=== PATIENT | male | born 1930 | race Caucasian/White ===

== ENCOUNTER 2016-12-21 12:26 | Observation (INO) | payer MEDICARE, BC ==
[~2016-12-21] VITALS: Ht 185.4 cm; Wt 99.9 kg
[~2016-12-21 12:26] MED LIST: ALBUTEROL0.5 % IN; ARICEPT PO; ASPIRINCHW 81MG PO; BABY ASPIRIN81 MG PO; CORICIDI2 PO; COUMADIN3 MG PO; COUMADIN6 MG PO; DONEPEZIL HCL10 MG PO; DONEPEZIL5 MG PO; FLUARIX QUADRIV1 INJ IM; FLUZONE SPLT1 M1 IM; GLYCOLAX3350 N1 OR; KEFLEX500 MG PO; KLOR-CON M2020 MEQ PO; LASIX 40 MG40 MG/TAB PO; LASIX40 MG OR; MELOXICAM7.5 MG/5 M OR; MUPIROCIN2 % EX; NAMENDA XR28 MG PO; NAMENDA10 MG PO; NEURONTIN400 MG PO; OSTEO BI-FL1 PO; OSTEO BI-FLX OR; PAROXETINE10 MG PO; PAROXETINE20 MG PO; SIMVASTATIN40 MG PO; TERAZOSIN10 MG OR; TERAZOSIN5 MG PO; TRAMADOL HCL50 MG PO; TRAMADOL PO; ULTRAM50 MG PO; VITAMIN B-121000 MC1 SL; WARFARIN3 MG PO; ZITHROMAX250 MG PO; ZOSTAVAX IM
[2016-12-21 12:42] LABS: HEMATOCRIT 44.6 % (39.0-50.0); HEMOGLOBIN 14.5 g/dl (14.0-18.0); IMMATURE GRANULOCYTES 0.2 % (0.0-1.0); MEAN CORPUSCULAR HGB 31.5 pG CALC (26.0-32.0); MEAN CORPUSCULAR HGB CONC 32.5 g/L CALC (32.0-36.0); NEUT# 3.28 thou/uL (1.82-7.42); RED BLOOD COUNT 4.6 mill/uL (4.70-6.10); RED CELL DISTRI WIDTH 14.4 % (11.5-15.5)
[2016-12-21 12:59] LABS: INTERNATIONAL NORMALIZED RATIO 3.3 RATIO (0.7-1.3); PROTHROMBIN TIME 39.4 SECONDS (9.0-12.5)
[2016-12-21 13:00] LABS: ALBUMIN 3.8 g/dL (3.2-5.0); ALKALINE PHOSPHATASE 60 u/l (38-126); AMYLASE 80 u/l (30-110); ANION GAP 12 (6-22 (CALC)); BILIRUBIN, TOTAL 2.3 mg/dL (0.0-1.4); BUN 17 mg/dL (8-23); BUN/CREATININE RATIO 16 (12-20 (CALC)); CALCIUM 9.3 mg/dL (8.4-10.2); CARBON DIOXIDE 29 mmol/l (22-30); CHLORIDE 106 mmol/l (95-108); CREATININE 1.1 mg/dL (0.7-1.3); GFR > 60 ML/MIN (>=60 (CALC)); GFR FOR AFR.AMER. > 60 ML/MIN (>=60 (CALC)); GLUCOSE 80 mg/dL (82-115); LIPASE 115 u/l (23-300); POTASSIUM 4.4 mmol/l (3.5-5.1); SGOT/AST 22 u/l (19-48); SGPT/ALT 27 u/l (11-66); SODIUM 143 mmol/l (137-146); TOTAL PROTEIN 6.7 g/dL (6.3-8.2)
[2016-12-21 13:13] LABS: MYOGLOBIN 49 ng/mL (0 - 121)
[2016-12-21] MEDS ORDERED: WARFARIN1 MG PO (14:37)
[2016-12-21] MEDS ORDERED: PAROXETINE10 MG PO (14:39)
[2016-12-21 16:16] VITALS: BP 142/84
[2016-12-21 19:10] VITALS: BP 132/73
[2016-12-22 00:02] VITALS: BP 100/60
[2016-12-22 04:10] VITALS: BP 98/62
[2016-12-22 06:21] LABS: INTERNATIONAL NORMALIZED RATIO 2.6 RATIO (0.7-1.3); PROTHROMBIN TIME 30.7 SECONDS (9.0-12.5)
[2016-12-22 06:27] LABS: ANION GAP 12 (6-22 (CALC)); BUN 18 mg/dL (8-23); BUN/CREATININE RATIO 17 (12-20 (CALC)); CALCIUM 9.2 mg/dL (8.4-10.2); CALCULATED LDLCHOLESTEROL 68 mg/dL (62-129 (CALC)); CARBON DIOXIDE 26 mmol/l (22-30); CHLORIDE 109 mmol/l (95-108); CHOLESTEROL HDL RATIO 3.3 (<4.4 (CALC)); GFR > 60 ML/MIN (>=60 (CALC)); GFR FOR AFR.AMER. > 60 ML/MIN (>=60 (CALC)); GLUCOSE 75 mg/dL (82-115); HDL CHOLESTEROL 39 mg/dL (>=40); POTASSIUM 4.3 mmol/l (3.5-5.1); SODIUM 142 mmol/l (137-146); TOTAL CHOLESTEROL 127 mg/dl (0-199); TOTAL TRIGLYCERIDES 98 mg/dl (30-149); VLDL CHOLESTROL 20 mg/dl (0-38 (CALC))
[2016-12-22 06:38] LABS: HEMATOCRIT 41.3 % (39.0-50.0); HEMOGLOBIN 14.3 g/dl (14.0-18.0); MEAN CELL VOLUME 96.5 fL CALC (80.0-100.0); MEAN CORPUSCULAR HGB 33.4 pG CALC (26.0-32.0); MEAN CORPUSCULAR HGB CONC 34.6 g/L CALC (32.0-36.0); PLATELET COUNT 91 thou/uL (130-400); RED BLOOD COUNT 4.28 mill/uL (4.70-6.10); RED CELL DISTRI WIDTH 14.2 % (11.5-15.5)
[2016-12-22 06:39] LABS: LYMPH% 22 % (15-41); MONO% 14 % (2-13); NEUT% 64 % (42-76)
[2016-12-22 09:22] VITALS: BP 87/53
[2016-12-22] MEDS ORDERED: WARFARIN6 MG PO (13:47)
[2016-12-22] MEDS ORDERED: NEURONTIN400 MG PO (13:50)
[2016-12-22] MEDS ORDERED: PROSCAR5 MG PO (13:51)
[2016-12-22] MEDS ORDERED: TERAZOSIN5 MG PO (13:51)
[2016-12-22] MEDS ORDERED: ALDACTONE25 MG PO (13:51)
[2016-12-22] MEDS ORDERED: OSTEO BI-FLEX R1 TAB PO (13:52)
[2016-12-22] MEDS ORDERED: TYLENOL 500MG TAB PO (13:52)
[2016-12-22 14:27] VITALS: BP 95/56
[2016-12-22 14:29] VITALS: BP 95/56
== END 2016-12-22 17:21 ==
LOC: ENPENDDIS → ED 12:26 → ED-I 13:58 → ED 14:19 → MS2 14:20
PROVIDERS: Emergency Medicine; ADMIT Internal Medicine; ATTEND Internal Medicine
DX: R07.89 Other chest pain (principal); I11.0 Hypertensive heart disease with heart failure; I50.22 Chronic systolic (congestive) heart failure; I42.0 Dilated cardiomyopathy; J44.9 Chronic obstructive pulmonary disease, unspecified; F03.90 Unspecified dementia, unspecified severity, without behavioral disturbance, psychotic disturbance, mood disturbance, and anxiety; I48.2 Chronic atrial fibrillation; E78.5 Hyperlipidemia, unspecified; R79.1 Abnormal coagulation profile; I95.9 Hypotension, unspecified; M19.90 Unspecified osteoarthritis, unspecified site; T45.515A Adverse effect of anticoagulants, initial encounter; Z87.891 Personal history of nicotine dependence

== ENCOUNTER 2017-01-09 16:26 | Emergency (ER) | payer MEDICARE, BC ==
[~2017-01-09] VITALS: Ht 185.4 cm; Wt 100.0 kg
[~2017-01-09 16:26] MED LIST changes: +ALDACTONE25 MG PO; +OSTEO BI-FLEX R1 TAB PO; +PROSCAR5 MG PO; +TYLENOL 500MG TAB PO; +WARFARIN1 MG PO; +WARFARIN6 MG PO
[2017-01-09 16:48] LABS: HEMATOCRIT 42.9 % (39.0-50.0); HEMOGLOBIN 13.8 g/dl (14.0-18.0); IMMATURE GRANULOCYTES 0.1 % (0.0-1.0); MEAN CELL VOLUME 97.5 fL CALC (80.0-100.0); MEAN CORPUSCULAR HGB 31.4 pG CALC (26.0-32.0); MEAN CORPUSCULAR HGB CONC 32.2 g/L CALC (32.0-36.0); NEUT# 7.17 thou/uL (1.82-7.42); RED BLOOD COUNT 4.4 mill/uL (4.70-6.10)
[2017-01-09] MEDS ORDERED: MYRBETRIQ25 MG (16:48)
[2017-01-09 17:00] LABS: URINE BLOOD DIPSTICK LARGE (NEGATIVE); URINE CLARITY CLEAR; URINE COLOR YELLOW; URINE GLUCOSE - DIPSTICK NEGATIVE (NEGATIVE); URINE KETONE TRACE mg/dL (NEGATIVE); URINE LEUK ESTERASE TRACE (NEGATIVE); URINE NITRITE - DIPSTICK NEGATIVE (Negative); URINE PH 5.5 (4.5-8.0); URINE PROTEIN - DIPSTICK 30 mg/dL (NEG-TRACE); URINE SPECIFIC GRAVITY 1.025
[2017-01-09 17:02] LABS: ALBUMIN 3.6 g/dL (3.2-5.0); ALKALINE PHOSPHATASE 53 u/l (38-126); ANION GAP 15 (6-22 (CALC)); BILIRUBIN, TOTAL 2.4 mg/dL (0.0-1.4); BUN 29 mg/dL (8-23); BUN/CREATININE RATIO 27 (12-20 (CALC)); CALCIUM 9.8 mg/dL (8.4-10.2); CARBON DIOXIDE 26 mmol/l (22-30); CHLORIDE 109 mmol/l (95-108); GFR > 60 ML/MIN (>=60 (CALC)); GFR FOR AFR.AMER. > 60 ML/MIN (>=60 (CALC)); GLUCOSE 87 mg/dL (82-115); POTASSIUM 4.3 mmol/l (3.5-5.1); SGOT/AST 17 u/l (19-48); SGPT/ALT 26 u/l (11-66); SODIUM 145 mmol/l (137-146); TOTAL PROTEIN 6.3 g/dL (6.3-8.2)
[2017-01-09 17:03] LABS: URINE BILIRUBIN - DIPSTICK TRACE (NEGATIVE)
[2017-01-09 17:14] LABS: URINE BACTERIA FEW hpf; URINE MUCUS MODERATE hpf (NONE-FEW); URINE RBC 50-100 RBC/hpf (0-5); URINE SQUAMOUS EPITHELIAL CELL RARE EPI/hpf (0-FEW)
[2017-01-09 17:14] LABS: MYOGLOBIN 46 ng/mL (0 - 121)
[2017-01-09] MEDS ORDERED: MACROBID100 MG PO (17:50)
[2017-01-09 18:33] VITALS: BP 130/59
== END 2017-01-09 19:05 | disposition home or self-care (01) ==
LOC: ED 16:26
PROVIDERS: Emergency Medicine
DX: N39.0 Urinary tract infection, site not specified (principal); I10 Essential (primary) hypertension; E78.00 Pure hypercholesterolemia, unspecified; J44.9 Chronic obstructive pulmonary disease, unspecified

== ENCOUNTER 2017-02-24 13:53 | Emergency (ER) | payer MEDICARE, BC ==
[~2017-02-24] VITALS: Ht 185.4 cm; Wt 79.5 kg
[~2017-02-24 13:53] MED LIST changes: +MACROBID100 MG PO; +MYRBETRIQ25 MG
[2017-02-24] MEDS ORDERED: MOTRIN400 MG PO (14:54)
[2017-02-24 15:19] VITALS: BP 146/70
== END 2017-02-24 15:44 ==
LOC: ED 13:53
PROC: 2W39X1Z Immobilization of Left Upper Extremity using Splint (ICD-10-PCS; principal; 2017-02-24)
DX: S52.002A Unspecified fracture of upper end of left ulna, initial encounter for closed fracture (principal); S51.011A Laceration without foreign body of right elbow, initial encounter; W01.0XXA Fall on same level from slipping, tripping and stumbling without subsequent striking against object, initial encounter; Y93.89 Activity, other specified; Y92.232 Corridor of hospital as the place of occurrence of the external cause

== ENCOUNTER 2017-12-03 04:47 | Inpatient (IN) | payer MEDICARE, BC ==
[2017-12-03] VITALS (10 sets, daily range): BP systolic 80–131; BP diastolic 50–80
[~2017-12-03] VITALS: Ht 182.9 cm; Wt 96.0 kg
[~2017-12-03 04:47] MED LIST changes: +MOTRIN400 MG PO
--- NOTE | 2017-12-03 04:50 | NUR ---
RECEIVED BY EMS, C/O R HIP PAIN AFTER FALL. OUTWARD ROTATION NOTED TO R FOOT. STRONG PEDAL PULSE PALPATED.
[2017-12-03] MEDS ORDERED: COLACE100 MG PO (04:59)
[2017-12-03] MEDS ORDERED: SPIRONOLACT25 MG PO (05:00)
[2017-12-03] MEDS ORDERED: NAMENDA10 MG PO (05:01)
[2017-12-03] MEDS ORDERED: JANTOVEN4 MG PO (05:02)
[2017-12-03] MEDS ORDERED: WARFARIN3 MG PO (05:02)
[2017-12-03] MEDS ORDERED: CLARITIN10 M1 PO (05:06)
[2017-12-03 06:14] LABS: HEMATOCRIT 45.5 % (39.0-50.0); HEMOGLOBIN 14.7 g/dl (14.0-18.0); IMMATURE GRANULOCYTES 0.7 % (0.0-1.0); MEAN CELL VOLUME 96.4 fL CALC (80.0-100.0); MEAN CORPUSCULAR HGB 31.1 pG CALC (26.0-32.0); MEAN CORPUSCULAR HGB CONC 32.3 g/L CALC (32.0-36.0); NEUT# 6.17 thou/uL (1.82-7.42); RED BLOOD COUNT 4.72 mill/uL (4.70-6.10); RED CELL DISTRI WIDTH 13.6 % (11.5-15.5)
[2017-12-03 06:20] LABS: ALBUMIN 3.7 g/dL (3.2-5.0); ALKALINE PHOSPHATASE 76 u/l (38-126); ANION GAP 16 (6-22 (CALC)); BILIRUBIN, TOTAL 1.4 mg/dL (0.0-1.4); BUN 20 mg/dL (8-23); BUN/CREATININE RATIO 22 (12-20 (CALC)); CARBON DIOXIDE 26 mmol/l (22-30); CHLORIDE 105 mmol/l (95-108); GFR > 60 ML/MIN (>=60 (CALC)); GFR FOR AFR.AMER. > 60 ML/MIN (>=60 (CALC)); POTASSIUM 4.1 mmol/l (3.5-5.1); SGOT/AST 27 u/l (19-48); SGPT/ALT 30 u/l (11-66); SODIUM 143 mmol/l (137-146); TOTAL PROTEIN 6.7 g/dL (6.3-8.2)
[2017-12-03 06:37] LABS: ACT PARTIAL THROMBO TIME 29.9 SECONDS (20.0-32.5); INTERNATIONAL NORMALIZED RATIO 1.4 RATIO (0.7-1.3); PROTHROMBIN TIME 15.4 SECONDS (9.0-12.5)
--- NOTE | 2017-12-03 06:42 | NUR ---
BEDSIDE REPORT GIVEN TO KWADWO SWAIN.
--- NOTE | 2017-12-03 07:00 | NUR ---
PT RESTING ON STRETCHER, ALERT, STATES HAVING 0/10 PAIN AND NO DISCOMFORT.
[2017-12-03 07:10] LABS: URINE BILIRUBIN - DIPSTICK NEGATIVE (NEGATIVE); URINE BLOOD DIPSTICK TRACE-LYSED (NEGATIVE); URINE COLOR YELLOW; URINE GLUCOSE - DIPSTICK NEGATIVE (NEGATIVE); URINE KETONE NEGATIVE (NEGATIVE); URINE LEUK ESTERASE NEGATIVE (NEGATIVE); URINE NITRITE - DIPSTICK NEGATIVE (Negative); URINE PH 6.5 (4.5-8.0); URINE PROTEIN - DIPSTICK TRACE mg/dL (NEG-TRACE)
[2017-12-03 07:14] LABS: URINE CLARITY CLEAR
--- NOTE | 2017-12-03 07:18 | NUR ---
CALLED [facility] FOR REPORT- ACCEPTING RN IN WITH PT WILL RETURN CALL.
--- NOTE | 2017-12-03 07:32 | NUR ---
FAMILY STATES THE LAST TIME PT ATE WAS AROUND 1700 ON 12/02/17.
--- NOTE | 2017-12-03 07:40 | NUR ---
REPORT CALLED TO [facility]- REPORT GIVEN TO CARLOS RN- ACCEPTED PT. ANESTHESIOLOGIST AT BEDSIDE.
--- NOTE | 2017-12-03 07:58 | NUR ---
PT ARRIVED TO FLOOR VIA STRETCHER. ACCOMPANIED BY BRYNN BURKETT. AT BEDSIDE. PT PULLED OVER TO BED. DENIES PAIN AT THIS TIME. REPORTING OF CONCERNS ENCOURAGED. RIGHT LEG SHORTENED AND EXTERNALLY ROTATED. BEDREST AND FALL PRECAUTIONS REINFORCED. PLAN OF CARE AND NPO DISCUSSED. STATES UNDERSTANDING. PT PLEASANTLY CONFUSED. BED ALARM SET FOR SAFETY.
--- NOTE | 2017-12-03 08:03 | NUR ---
Admission Note Report Given to: CARLOS SWAIN Transported by: Wheelchair X Stretcher Transported with: X Nurse Transporter X Patent IV O2 X Web Site Specialist
--- NOTE | 2017-12-03 10:49 | NUR ---
PT LEFT FLOOR VIA BED ACCOMPANIED BY OR STAFF X 2. STABLE AT THIS TIME.
--- NOTE | 2017-12-03 14:08 | NUR ---
PT ARRIVED TO FLOOR VIA BED. ACCOMPANIED BY BRYNN REICH. PT SLEEPING. RESPONDS TO VERBAL STIMULI, BUT DROWSY. O2 SAT 89% ON RA, O2 @ 2L APPLIED VIA NC. SCD APPLIED TO LEFT LEG. DRESSING TO RIGHT HIP CDI. IVF INFUSING #20 RH WITHOUT DIFFICULTY. AT BEDSIDE.
--- NOTE | 2017-12-03 16:34 | NUR ---
ORDER RECEIVED FOR P.T. EVAL AND TX. SPOKE WITH GILMARG (JACK) REGARDING PATIENT'S READINESS FOR SAME. INFORMED THAT PERLA HAS JUST BEEN UP ON THE FLOOR FOR A FEW HOURS AND IS NOT YET ALERT ENOUGH FOR ASSESSMENT/MOBILITY. HE HAS WB'G LIMITATION OF 25% TTWB R LE. HE HAS HX OF DEMENTIA AND WILL NEED TO BE ALERT TO MAINTAIN THIS PRECAUTION. NSG INFORMED THAT THERE IS NO AVAILABLE PT COVERAGE UNTIL WEDNESDAY. JACK WILL BE ON TOMORROW AND WILL WORK TO MAINTAIN WB'G PRECAUTIONS UNTIL P.T. EVALUATION IS ABLE TO BE COMPLETED. DR. CONROY'S OFFICE WAS INFORMED OF THE ABOVE SITUATION. (SPOKE WITH DYLAN).
--- NOTE | 2017-12-03 16:40 | NUR ---
PT REPORTS BACK PAIN. REPOSITIONED. DILAUDID IV ADMINISTERED. PT NOW SLEEPING.
--- NOTE | 2017-12-03 18:26 | NUR ---
NO VOID SINCE PRIOR TO SX. BLADDER SCAN SHOWS [address] PATEL NOTIFIED. ORDER FOR VITAL GIVEN.
--- NOTE | 2017-12-03 19:20 | NUR ---
PT IN BED A/O TO SELF, IS CONFUSED BUT PLEASANT AND FOLLOWS DIRECTIONS. ABLE TO STATE HIS NAME AND ONLY. POST OP RIGHT HIP STABILIZATION TODAY. LARGE DRESSING TO RIGHT HIP CDI, DUE TO BE CHANGED 12/08. STRONG RADIAL AND PEDAL PULSES, ABLE TO WIGGLE TOES. IV FLUIDS INFUSING TO RH AT 100CC/HR. RESPIRATIONS EVEN AND UNLABORED ON O2 @2L VIA NC. USING I/S WHEN INSTRUCTED TO, INSPIRED VOLUME UP TO 1500ML. SCD'S TO LEFT LEG. VITAL CATHETER DRAINING CLEAR YELLOW URINE. VITALS 98.0, 91, 18, 80/50, O2 SAT 92%. WILL CONTINUE TO MONITOR. BED ALARM IN PLACE.
--- NOTE | 2017-12-03 22:00 | NUR ---
THIS NURSE SITTING OUTSIDE PT ROOM DUE TO CONFUSION AND OCCASIONALLY PULLING ON VITAL CATHETER, REORIENTS EASILY AND FOLLOWS DIRECTIONS WHEN INSTRUCTED.
[2017-12-04] VITALS (7 sets, daily range): BP systolic 84–94; BP diastolic 52–64
--- NOTE | 2017-12-04 00:30 | NUR ---
PT HAS REMOVED TELE, AND PULLING ON VITAL CATHETER, BLOOD NOTICED IN TUBING AND IN PT'S HAND. ZACK CARE AND VITAL CARE PROVIDED, POSITIONED TO RIGHT SIDE. VITALS 98.9, 89, 90/64, 97%. D5LR INFUSING TO RH WITH NO COMPLICATION.
--- NOTE | 2017-12-04 01:10 | NUR ---
PT NOTICED TO BE RESTLESS, WHEN ASKED WHAT IS WRONG PT STATES "IM HURTING IN MY HIP", PERCOCET 10/325MG PROVIDED AT THIS TIME. THIS WRITTER SITTING AT PT'S BED SIDE.
--- NOTE | 2017-12-04 04:00 | NUR ---
MORNING VITALS 98.5, 95, 18, 90/58, 92% RA. VITAL DRAINING BLOODY URINE. C/O PAIN WHEN REPOSITIONING, POSITIONED TO LEFT SIDE.
--- NOTE | 2017-12-04 06:51 | NUR ---
POSITIONED TO SEMIFOWLERS, WATCHING TV, ALERT TO SELF AND PLACE. BED ALARM IN PLACE, CALL LIGHT IN REACH.
--- NOTE | 2017-12-04 07:00 | NUR ---
REPORT RECEIVED FROM NBA MIGUEL. PT SITTING UPRIGHT IN BED. DENIES PAIN. REPORTING OF CONCERNS ENCOURAGED. FALL PRECAUTIONS REINFORCED. PT PLEASANTLY CONFUSED. BED ALARM SET FOR SAFETY. CALL LIGHT REVIEWED AND IN REACH. PT STATES UNDERSTANDING, BUT WILL REQUIRE REINFORCEMENT.
[2017-12-04 07:35] LABS: IMMATURE GRANULOCYTES 0.5 % (0.0-1.0); MEAN CELL VOLUME 95.9 fL CALC (80.0-100.0); MEAN CORPUSCULAR HGB 31.2 pG CALC (26.0-32.0); MEAN CORPUSCULAR HGB CONC 32.6 g/L CALC (32.0-36.0); NEUT# 9.68 thou/uL (1.82-7.42); RED BLOOD COUNT 3.62 mill/uL (4.70-6.10); RED CELL DISTRI WIDTH 13.8 % (11.5-15.5)
[2017-12-04 07:38] LABS: HEMATOCRIT 34.7 % (39.0-50.0); HEMOGLOBIN 11.3 g/dl (14.0-18.0)
[2017-12-04 07:51] LABS: ALKALINE PHOSPHATASE 44 u/l (38-126); ANION GAP 13 (6-22 (CALC)); BILIRUBIN, TOTAL 1.6 mg/dL (0.0-1.4); BUN 27 mg/dL (8-23); BUN/CREATININE RATIO 21 (12-20 (CALC)); CARBON DIOXIDE 27 mmol/l (22-30); CHLORIDE 103 mmol/l (95-108); CREATININE 1.3 mg/dL (0.7-1.3); GFR 52 ML/MIN (>=60 (CALC)); GFR FOR AFR.AMER. > 60 ML/MIN (>=60 (CALC)); MAGNESIUM 1.7 mg/dL (1.6-2.3); POTASSIUM 4.3 mmol/l (3.5-5.1); SGOT/AST 29 u/l (19-48); SGPT/ALT 32 u/l (11-66); SODIUM 138 mmol/l (137-146)
[2017-12-04 07:55] LABS: ALBUMIN 2.6 g/dL (3.2-5.0); TOTAL PROTEIN 5.2 g/dL (6.3-8.2)
--- NOTE | 2017-12-04 08:22 | NUR ---
PT TOLERATING CLEAR LIQUID DIET. ADVANCED TO FULL LIQUID PER ORDER.
--- NOTE | 2017-12-04 11:00 | NUR ---
PHYSICAL THERAPY AT BEDSIDE. PT UNABLE TO FOLLOW DIRECTIONS TO STAND. ASSISTED BACK TO BED.
--- NOTE | 2017-12-04 15:47 | NUR ---
CONSULT CALLED TO DR. DEGROOT. OR YASMINE TO INSERT [address]TER, AND START CBI IF BLEEDING PERSISTS.
--- NOTE | 2017-12-04 16:56 | NUR ---
[address] CAT[address] INSERTED. BLOODY OUTPUT ON INSERTION. WILL MONITOR AND START CBI IF BLEEDING DOES NOT STOP PER DR. DEGROOT.
--- NOTE | 2017-12-04 18:17 | NUR ---
CBI INITIATED AT THIS TIME. MULTIPLE LARGE CLOTS DRAINING. IRRIGATION RUNNING WIDE OPEN, OUTPUT CLEAR PINK.
--- NOTE | 2017-12-04 19:08 | NUR ---
RECEIVED CHANGE OF SHIFT REPORT FORM JACK, BRYNN. PATIENT IS CONFUSED AND LYING IN BED. CBI GOING WITHOUT DIFFICULTY. NO APPARENT ACUTE DISTRESS NOTED. WILL CONTINUE TO MONITOR.
[2017-12-05] VITALS (9 sets, daily range): BP systolic 99–154; BP diastolic 62–86
--- NOTE | 2017-12-05 | NUR ---
PT RESTING IN BED WITH EYES CLOSED AND APPEARS TO BE ASLEEP. CBI DRAINING WELL WITH PEACH COLOR. NO APPARENT ACUTE DISTRESS NOTED. WILL CONTINUE TO MONITOR.
--- NOTE | 2017-12-05 04:00 | NUR ---
PATIENT RESTING WELL WITH EYES CLOSED AND APPEARS TO BE ASLEEP. NO APPARENT ACUTE CHANGES NOTED IN PT'S CONDITION. CBI WITH PEACH COLOR AND DRAING WELL. WILL CONTINUE TO MONITOR.
[2017-12-05 05:52] LABS: ANION GAP 11 (6-22 (CALC)); BUN 26 mg/dL (8-23); BUN/CREATININE RATIO 22 (12-20 (CALC)); CARBON DIOXIDE 26 mmol/l (22-30); CHLORIDE 103 mmol/l (95-108); CREATININE 1.2 mg/dL (0.7-1.3); GFR 58 ML/MIN (>=60 (CALC)); GFR FOR AFR.AMER. > 60 ML/MIN (>=60 (CALC)); MAGNESIUM 1.7 mg/dL (1.6-2.3); POTASSIUM 3.9 mmol/l (3.5-5.1); SODIUM 136 mmol/l (137-146)
[2017-12-05 06:35] LABS: HEMOGLOBIN 10.1 g/dl (14.0-18.0); IMMATURE GRANULOCYTES 0.5 % (0.0-1.0); MEAN CELL VOLUME 96.3 fL CALC (80.0-100.0); MEAN CORPUSCULAR HGB 31.4 pG CALC (26.0-32.0); MEAN CORPUSCULAR HGB CONC 32.6 g/L CALC (32.0-36.0); NEUT# 8.72 thou/uL (1.82-7.42); RED BLOOD COUNT 3.22 mill/uL (4.70-6.10)
--- NOTE | 2017-12-05 07:19 | NUR ---
REPORT RECEIVED FROM BRYNN IGLESIAS. PT SITTING UPRIGHT IN BED. SLEEPING. CALL LIGHT WITHIM REACH. CBI RUNNING, TITRATED TO SLOWEST RATE TO MAINTAIN PINK, CLEAR DRAINAGE.
[2017-12-05 10:10] LABS: INTERNATIONAL NORMALIZED RATIO 1.7 RATIO (0.7-1.3); PROTHROMBIN TIME 19.2 SECONDS (9.0-12.5)
--- NOTE | 2017-12-05 10:53 | NUR ---
PT LEFT FLOOR VIA BED ACCOMPANIED BY OR STAFF X 2. STABLE AT THIS TIME.
--- NOTE | 2017-12-05 14:18 | NUR ---
PHYSICAL THERAPY IN TO SEE PT. STAFF X 3 ASSISTED TO STAND, TOE TOUCH ON RIGHT FOOT THREE TIMES. PT TOLERATED ACTIVITY. NOW OF RIGHT SIDE IN BED.
--- NOTE | 2017-12-05 14:23 | NUR ---
The patient is seen for physical therapy today with assist of nursing. He is max assist for bed mobility and for sit to stand while maintaining TDWBon the right. He attempted this x 3 with max assist of 2 . He could not yet toake steps as he is continuing to have postop weakness. I assisted nursing with skin care and repositiioning. His spouse tells us that his skin was breaking down prior to admission. He has been extremely sedentary at home according to her report. He would benefit from SNF as planned upon DC to give him time to return to prior level of function
--- NOTE | 2017-12-05 15:45 | NUR ---
CBI RUNNING, PALE PINK DRAINAGE. PT SLEEPING AT THIS TIME.
--- NOTE | 2017-12-05 20:10 | NUR ---
RECEIVED CHANGE OF SHIFT REPORT FROM BRYNN SANTIAGO. PT LYING IN BED AND APPEARS NOT TO BE IN ANY DISCONMFORT. CBI DRAINING WELL WITH PEACH COLOR. NO APPARENT ACUTE DISTRESS NOTED. WILL CONTINUE TO MONITOR.
--- NOTE | 2017-12-06 | NUR ---
NO APPARENT ACUTE CHANGES NOTED IN PT'S CONDITION AT THIS TIME
[2017-12-06 00:13] VITALS: BP 103/71
[2017-12-06 03:45] VITALS: BP 110/59
--- NOTE | 2017-12-06 04:00 | NUR ---
PT RESTED WELL. NO APPARENT ACUTE CHANGES NOTED IN PT'S CONDITION. CBI DRAINING PEACH COLOR.
--- NOTE | 2017-12-06 05:32 | NUR ---
CONSERVATION EDUCATOR REPORTS THAT PT HAS 9 BEATS RUN OF V-TACH WITH RATE OF 181/BPM. PT ASYMTOMATIC. BP 109/60, HR 65.
[2017-12-06 06:04] LABS: ANION GAP 10 (6-22 (CALC)); BUN 17 mg/dL (8-23); BUN/CREATININE RATIO 20 (12-20 (CALC)); CARBON DIOXIDE 29 mmol/l (22-30); CHLORIDE 103 mmol/l (95-108); CREATININE 0.9 mg/dL (0.7-1.3); GFR > 60 ML/MIN (>=60 (CALC)); GFR FOR AFR.AMER. > 60 ML/MIN (>=60 (CALC)); MAGNESIUM 1.8 mg/dL (1.6-2.3); SODIUM 138 mmol/l (137-146)
[2017-12-06 06:21] LABS: HEMATOCRIT 30.3 % (39.0-50.0); HEMOGLOBIN 9.8 g/dl (14.0-18.0); IMMATURE GRANULOCYTES 0.8 % (0.0-1.0); MEAN CELL VOLUME 97.1 fL CALC (80.0-100.0); MEAN CORPUSCULAR HGB 31.4 pG CALC (26.0-32.0); MEAN CORPUSCULAR HGB CONC 32.3 g/L CALC (32.0-36.0); NEUT# 6.41 thou/uL (1.82-7.42); RED BLOOD COUNT 3.12 mill/uL (4.70-6.10); RED CELL DISTRI WIDTH 13.9 % (11.5-15.5)
--- NOTE | 2017-12-06 07:10 | NUR ---
REPORT RECEIVED FROM BRYNN IGLESIAS;PT APPEARS TO BE SLEEPING IN SEMI FOWLERS POSITION;RESPIRATIONS APPEAR EVEN AND UNLABORED ON 02 @ 2L VIA NC;NO S/S OF DISTRESS NOTED;CBI INFUSING WITH EASE BAG #19 CURRENTLY RUNNING;CATHETER IN PLACE DRAINING PINK/CLEAR URINE;FALL PRECAUTIONS IN PLACE WITH BED IN THE LOWEST POSITION;CALL LIGHT IN REACH;WILL CONTINUE TO MONITOR
--- NOTE | 2017-12-06 08:00 | NUR ---
CBI CLAMPED AT THIS TIME PER ,OUTPUT PEACH IN COLOR;WILL CONTINUE TO MONITOR
--- NOTE | 2017-12-06 08:15 | NUR ---
PT RESTING IN SEMI FOWLERS POSITION;ALERT TO SELF AND PLACE,WILL RE-ORIENTED ACCORDINGLY;VS OBTAINED AND ASSESSMENT COMPLETED;RESPIRATIONS EVEN AND UNLABORED ON 02 @ 3L VIA NC,CLEAR/DIMINISHED LUNG SOUNDS NOTED;I.S. AT BEDSIDE AND GOAL SET TO 1500,PT EDUCATED ON USE AND ENCOURAGED TO USE 10X PER HOUR WHILE AWAKE;ABDOMEN DISTENDED/SOFT ON PALPATION AND HYPOACTIVE IN ALL 4 QUADRANTS;WEAK PEDAL PULSES,SCD'S NOTED;#22G TO RIGHT FOREARM INFUSING LR @ 125ML/HR,SITE APPEARS HEALTHY;TELE MONITOR IN PLACE;DRESSING TO RIGHT HIP CDI,PT DENIES ANY CURRENT PAIN;PAIN SCALE AND REPORTING ENCOURAGED;PT ENCOURAGED TO CALL FOR ASSISTANCE IF NEEDED;FALL PRECAUTIONS IN PLACE WITH BED IN THE LOWEST POSITION;CALL LIGHT IN REACH;WILL CONTINUE TO MONITOR
[2017-12-06 08:16] VITALS: BP 109/69
--- NOTE | 2017-12-06 10:12 | NUR ---
SPOKE WITH REGARDING CBI,CBI TO REMAINED CLAMPED AT THIS TIME; TO BE IN THIS AFTERNOON TO RE-EVALUATE;WILL CONTINUE TO MONITOR
--- NOTE | 2017-12-06 11:20 | NUR ---
PT RESTING IN SEMI FOWLERS POSITION WITH SPOUSE AT BEDSIDE;CATHETER PATENT DRAINING PEACH/PINK OUTPUT;IV SITE PATENT INFUSING TO RIGHT FOREARM WITH EASE;TELE MONITOR IN PLACE;PT DENIES ANY CURRENT PAIN OR NEEDS;PO FLUIDS ENCOURAGED;FALL PRECAUTIONS REMAIN IN PLACE;CALL LIGHT IN REACH;WILL CONTINUE TO MONITOR
[2017-12-06 11:30] VITALS: BP 120/62
--- NOTE | 2017-12-06 11:50 | NUR ---
PRIYANKA,PHYSICAL THERAPY AT BEDSIDE AND PT AMBULATED WITH A WEAK GAIT AND 1 PERSON ASSIST TO RECLINER,PT TOLERATED WELL;WILL CONTINUE TO MONITOR
--- NOTE | 2017-12-06 13:20 | NUR ---
PT OOB RESTING IN RECLINER;AGITATED PULLING AT IV SITE AND VITAL CATHETER;PT ALSO COMPLAINS OF RIGHT HIP PAIN RATING 3/10 ON THE PAIN SCALE;SPOKE WITH AND SEROQUEL 25MG PO TO BE ADMINISTRED WELL PERCOCET 10/325MG 1 COMBO PO FOR PAIN;PT DENIES ANY OTHER CURRENT NEEDS;ENCOURAGED TO CALL FOR ASSISTANCE IF NEEDED;CALL LIGHT IN REACH;WILL CONTINUE TO MONITOR
[2017-12-06 16:16] VITALS: BP 112/60
--- NOTE | 2017-12-06 17:10 | NUR ---
PT DROWSY RESTING IN SEMI FOWLERS POSITION;IV SITE PATENT;TELE MONITOR IN PLACE;PT ADMINISTERED MIRLAX AT THIS TIME AND ENCOURAGED TO DRINK;VITAL CATHETER DRAINING PINK URINE;PT DENIES ANY PAIN TO RIGHT HIP, DRESSING REMAINS CDI;RESPIRATIONS EVEN AND UNLABORED ON 02 @ 3L VIA NC;FALL PRECAUTIONS IN PLACE WITH CALL LIGHT IN REACH;WILL CONTINUE TO MONITOR
--- NOTE | 2017-12-06 17:22 | NUR ---
The patient is seen in the AM for ROM to the RLE gentle knee slides and quad sets x 10 reps. He is transferred supine to sit with max assist of 1 and then SPT to bedside chair for his lunch. He was positioned with feet down and maintained TDWB on the right with assist. The patient is seen for transfer rtaining BTB . He required max assist of 2 to do so. He would benefit from SNF. His spouse is in the room in the PM and admits she had difficulty caring for him at home pre surgery
[2017-12-06 19:00] VITALS: BP 100/66
--- NOTE | 2017-12-06 19:30 | NUR ---
PATIENT RESTING IN BED WITH HEAD COCKED TO THE RIGHT-APPEARS SLEEPING WITH EYES CLOSED. PATIENT WITH VITAL PATENT AND DRAINING PEACH COLORED URINE. HEP LOCK TO RIGHT FOREARM INTACT-APPEARS HEALTHY AT TH IS TIME. DRESSING TO RIGHT HIP CDI. O2 VIA NASAL CANNULA IN PLACE AT 3LPM. CALL LIGHT IN REACH. WILL CONT TO MONITOR.
--- NOTE | 2017-12-06 22:43 | NUR ---
PATIENT AWAKE AND PLEASANT-ORIENTED TO PERSON ONLY AT THIS TIME. O2 OFF AND O2 SAT AT 94%. 3-WAY VITAL IS PATENT DRAINING PEACH COLORED URINE WITH SOME SEDIMENT NOTED IN TUBING. MODERATE AMT OF BLOODY DRAINAGE NOTED ON 4X4 GAUGES. VITAL CATH CARE DONE WITH SOAP AND WATER, VITAL SECURED WITH ELEASTOPLAST TO LEFT THIGH. DRESSING TO RIGHT HIP IS CLEAN DRY AND INTACT. PATIENT CONT TO REFUSE ANY OF HIS DINNER TRAY-STATES THAT HE IS NOT HUNGRY. PATIENT TURNED AND REPOSITIONED-CONT TO LEAN HIS HEAD AND NECK TO THE RIGHT SIDE. BED ALARM IN PLACE FOR PATIENT SAFETY. CALL LIGHT IN REACH. WILL CONT TO MONITOR.
[2017-12-07 00:10] VITALS: BP 104/64
--- NOTE | 2017-12-07 01:10 | NUR ---
PATIENT APPEARS SLEEPING WITH EYES CLOSED. CONT TO FAVOR HIS RIGHT SIDE. BED ALARM IN PLACE FOR PATIENT SAFETY . CALL LIGHT IN REACH. WILL CONT TO MONITOR.
[2017-12-07 04:00] VITALS: BP 100/64
--- NOTE | 2017-12-07 05:15 | NUR ---
PATIENT APPEARS SLEEPING WITH EYES CLOSED AND HEAD FAVORING THE RIGHT SIDE. VITAL PATENT AND DRAING PINK TINGED URINE. BED ALARM IN PLACE FOR PATIENT SAFETY. CALL LIGHT IN REACH. WILL CONT TO MONITOR.
[2017-12-07 05:33] LABS: HEMATOCRIT 29.7 % (39.0-50.0); HEMOGLOBIN 9.8 g/dl (14.0-18.0); IMMATURE GRANULOCYTES 0.6 % (0.0-1.0); MEAN CELL VOLUME 96.1 fL CALC (80.0-100.0); MEAN CORPUSCULAR HGB 31.7 pG CALC (26.0-32.0); NEUT# 5.97 thou/uL (1.82-7.42); RED BLOOD COUNT 3.09 mill/uL (4.70-6.10); RED CELL DISTRI WIDTH 13.7 % (11.5-15.5)
[2017-12-07 05:56] LABS: ANION GAP 12 (6-22 (CALC)); BUN 22 mg/dL (8-23); BUN/CREATININE RATIO 25 (12-20 (CALC)); CARBON DIOXIDE 27 mmol/l (22-30); CHLORIDE 103 mmol/l (95-108); CREATININE 0.9 mg/dL (0.7-1.3); GFR > 60 ML/MIN (>=60 (CALC)); GFR FOR AFR.AMER. > 60 ML/MIN (>=60 (CALC)); MAGNESIUM 1.8 mg/dL (1.6-2.3); POTASSIUM 4.3 mmol/l (3.5-5.1); SODIUM 137 mmol/l (137-146)
--- NOTE | 2017-12-07 07:00 | NUR ---
SHIFT CHANGE REPORT FROM DONAVAN GUSMAN RESTING WITH EYES CLOSED, RESPONDS TO VERBAL STIMULI, NO C/O DISCOMFORT,TELE MONITOR IN PLACE, O2 @ 2L VIA NC IN PLACE, VITAL CATHETER IN PLACE WITH LIGHT PINK/BLOODY URINE, CALL RICH IN REACH.
[2017-12-07 08:20] VITALS: BP 96/59
[2017-12-07 08:51] LABS: INTERNATIONAL NORMALIZED RATIO 1.3 RATIO (0.7-1.3); PROTHROMBIN TIME 14.2 SECONDS (9.0-12.5)
--- NOTE | 2017-12-07 11:29 | NUR ---
REQUESTED PAIN MED AT THIS TIME, CONCERN ADDRESSED, REPOSITIONED TO LEFT SIDE. SPOUSE AT BEDSIDE, CALL RICH IN REACH.
[2017-12-07 11:32] VITALS: BP 108/67
[2017-12-07] MEDS ORDERED: PERCOCET 10/31 COMBO PO (11:42)
[2017-12-07] MEDS ORDERED: LEVAQUIN750 MG PO (11:43)
--- NOTE | 2017-12-07 13:02 | NUR ---
HAVING MEAL AT THIS ITME, VERY SLOW EATER, REPORTS PAIN IS RELIEVED, SPOUSE AT BEDSIDE, CALL RICH IN REACH.
--- NOTE | 2017-12-07 15:13 | NUR ---
PATIENT SEEN FOR AM TX PRIOR TO EATING HIS LUNCH TODAY. AAROM OF RIGHT LE FOR HEEL SLIDES AND HIP ABD/ADD TO TOLERANCE 2 X 10. ACTIVE ANKLE PUMPS AND QUAD SETS TO BOTH LEGS SIMULTANEOUSLY FOR OVERFLOW. PATIENT'S STATES THAT HE WAS ABLE TO AMB WITH RW PRIOR TO ADMISSION AND FREQUENTLY DID NOT EVEN USE HIS WALKER IN HIS ROOM. AM TX FOR EX ONLY.
[2017-12-07 15:30] VITALS: BP 100/50
--- NOTE | 2017-12-07 16:57 | NUR ---
REPORT CALLED TO SALAS AT [facility], TRANSPORTER HAD ARRIVED TO RECEIVE PT BUT PT WAS TOILETTING AT THAT TIME, WILL CONTINUE TO MONITOR.
--- NOTE | 2017-12-07 17:15 | NUR ---
Discharge instructions given. Patient verbalizes understanding of same. Discharged in stable condition via Wheelchair to [facility] with *Other. All belongings sent with pt.
== END 2017-12-07 17:40 | DRG 956 ==
LOC: ED 04:47 → ED-I 05:40 → ED 06:51 → MS2 06:52
PROVIDERS: Emergency Medicine; Nurse Practitioner Family; ADMIT Internal Medicine; ATTEND Internal Medicine
PROC: 0QS606Z Reposition Right Upper Femur with Intramedullary Internal Fixation Device, Open Approach (ICD-10-PCS; principal; 2017-12-03)
PROC: 0W3R8ZZ Control Bleeding in Genitourinary Tract, Via Natural or Artificial Opening Endoscopic (ICD-10-PCS; 2017-12-05)
PROC: 0T9B8ZZ Drainage of Bladder, Via Natural or Artificial Opening Endoscopic (ICD-10-PCS; 2017-12-05)
DX: S72.141A Displaced intertrochanteric fracture of right femur, initial encounter for closed fracture (principal); S37.39XA Other injury of urethra, initial encounter; J18.9 Pneumonia, unspecified organism; G93.41 Metabolic encephalopathy; J44.0 Chronic obstructive pulmonary disease with (acute) lower respiratory infection; I48.91 Unspecified atrial fibrillation; R31.0 Gross hematuria; F03.90 Unspecified dementia, unspecified severity, without behavioral disturbance, psychotic disturbance, mood disturbance, and anxiety; N13.8 Other obstructive and reflux uropathy; N40.1 Benign prostatic hyperplasia with lower urinary tract symptoms; I10 Essential (primary) hypertension; E78.5 Hyperlipidemia, unspecified; N32.89 Other specified disorders of bladder; W18.30XA Fall on same level, unspecified, initial encounter; X58.XXXA Exposure to other specified factors, initial encounter; Y92.230 Patient room in hospital as the place of occurrence of the external cause; Z79.01 Long term (current) use of anticoagulants; Z87.891 Personal history of nicotine dependence; Y92.099 Unspecified place in other non-institutional residence as the place of occurrence of the external cause

== ENCOUNTER 2018-01-27 14:59 | Inpatient (IN) | payer MEDICARE, BC ==
[~2018-01-27] VITALS: Ht 182.9 cm; Wt 88.6 kg
[~2018-01-27 14:59] MED LIST changes: +CLARITIN10 M1 PO; +COLACE100 MG PO; +JANTOVEN4 MG PO; +LEVAQUIN750 MG PO; +PERCOCET 10/31 COMBO PO; +SPIRONOLACT25 MG PO
[2018-01-27 16:41] LABS: IMMATURE GRANULOCYTES 0.6 % (0.0-1.0); MEAN CELL VOLUME 93.5 fL CALC (80.0-100.0); MEAN CORPUSCULAR HGB CONC 32.1 g/L CALC (32.0-36.0); NEUT# 13.88 thou/uL (1.82-7.42); RED BLOOD COUNT 4.43 mill/uL (4.70-6.10); RED CELL DISTRI WIDTH 15.2 % (11.5-15.5)
[2018-01-27 16:42] LABS: HEMATOCRIT 41.4 % (39.0-50.0); HEMOGLOBIN 13.3 g/dl (14.0-18.0)
[2018-01-27 16:55] LABS: INTERNATIONAL NORMALIZED RATIO 1.6 RATIO (0.7-1.3); PROTHROMBIN TIME 17.7 SECONDS (9.0-12.5)
[2018-01-27 16:58] LABS: ALBUMIN 3.2 g/dL (3.2-5.0); ALKALINE PHOSPHATASE 89 u/l (38-126); ANION GAP 15 (6-22 (CALC)); BILIRUBIN, TOTAL 1.3 mg/dL (0.0-1.4); BUN 34 mg/dL (8-23); BUN/CREATININE RATIO 30 (12-20 (CALC)); CARBON DIOXIDE 24 mmol/l (22-30); CHLORIDE 104 mmol/l (95-108); CREATININE 1.1 mg/dL (0.7-1.3); GFR > 60 ML/MIN (>=60 (CALC)); GFR FOR AFR.AMER. > 60 ML/MIN (>=60 (CALC)); POTASSIUM 4.3 mmol/l (3.5-5.1); SGOT/AST 28 u/l (19-48); SGPT/ALT 24 u/l (11-66); SODIUM 138 mmol/l (137-146); TOTAL PROTEIN 6.5 g/dL (6.3-8.2)
[2018-01-27 20:45] VITALS: BP 84/53
[2018-01-27 22:28] VITALS: BP 88/58
[2018-01-27 23:46] VITALS: BP 85/60
[2018-01-28] VITALS (10 sets, daily range): BP systolic 87–124; BP diastolic 42–71
[2018-01-28 07:46] LABS: HEMATOCRIT 36.8 % (39.0-50.0); HEMOGLOBIN 11.7 g/dl (14.0-18.0); MEAN CELL VOLUME 93.6 fL CALC (80.0-100.0); MEAN CORPUSCULAR HGB 29.8 pG CALC (26.0-32.0); MEAN CORPUSCULAR HGB CONC 31.8 g/L CALC (32.0-36.0); RED BLOOD COUNT 3.93 mill/uL (4.70-6.10); RED CELL DISTRI WIDTH 15.2 % (11.5-15.5)
[2018-01-28 08:02] LABS: INTERNATIONAL NORMALIZED RATIO 1.5 RATIO (0.7-1.3); PROTHROMBIN TIME 16.9 SECONDS (9.0-12.5)
[2018-01-29 00:30] VITALS: BP 119/74
[2018-01-29 04:30] VITALS: BP 103/67
[2018-01-29 06:08] LABS: HEMATOCRIT 33.4 % (39.0-50.0); HEMOGLOBIN 10.7 g/dl (14.0-18.0); IMMATURE GRANULOCYTES 0.1 % (0.0-1.0); MEAN CORPUSCULAR HGB 29.8 pG CALC (26.0-32.0); NEUT# 5.78 thou/uL (1.82-7.42); RED BLOOD COUNT 3.59 mill/uL (4.70-6.10); RED CELL DISTRI WIDTH 14.9 % (11.5-15.5)
[2018-01-29 06:23] LABS: ANION GAP 10 (6-22 (CALC)); BUN 26 mg/dL (8-23); BUN/CREATININE RATIO 29 (12-20 (CALC)); CARBON DIOXIDE 22 mmol/l (22-30); CHLORIDE 109 mmol/l (95-108); CREATININE 0.9 mg/dL (0.7-1.3); GFR > 60 ML/MIN (>=60 (CALC)); GFR FOR AFR.AMER. > 60 ML/MIN (>=60 (CALC)); MAGNESIUM 1.8 mg/dL (1.6-2.3); SODIUM 137 mmol/l (137-146)
[2018-01-29 06:32] LABS: INTERNATIONAL NORMALIZED RATIO 1.4 RATIO (0.7-1.3); PROTHROMBIN TIME 15.4 SECONDS (9.0-12.5)
[2018-01-29 08:00] VITALS: BP 101/63
[2018-01-29 16:24] VITALS: BP 87/53
[2018-01-29 19:44] VITALS: BP 114/82
[2018-01-30 00:45] VITALS: BP 111/71
[2018-01-30 04:31] VITALS: BP 111/71
[2018-01-30 05:14] LABS: HEMATOCRIT 34.5 % (39.0-50.0); HEMOGLOBIN 10.9 g/dl (14.0-18.0); IMMATURE GRANULOCYTES 0.3 % (0.0-1.0); MEAN CELL VOLUME 93.8 fL CALC (80.0-100.0); MEAN CORPUSCULAR HGB 29.6 pG CALC (26.0-32.0); MEAN CORPUSCULAR HGB CONC 31.6 g/L CALC (32.0-36.0); NEUT# 3.99 thou/uL (1.82-7.42); RED BLOOD COUNT 3.68 mill/uL (4.70-6.10); RED CELL DISTRI WIDTH 14.8 % (11.5-15.5)
[2018-01-30 05:30] LABS: INTERNATIONAL NORMALIZED RATIO 1.2 RATIO (0.7-1.3); PROTHROMBIN TIME 13.8 SECONDS (9.0-12.5)
[2018-01-30 05:40] LABS: ANION GAP 9 (6-22 (CALC)); BUN 17 mg/dL (8-23); BUN/CREATININE RATIO 21 (12-20 (CALC)); CARBON DIOXIDE 23 mmol/l (22-30); CHLORIDE 111 mmol/l (95-108); CREATININE 0.8 mg/dL (0.7-1.3); GFR > 60 ML/MIN (>=60 (CALC)); GFR FOR AFR.AMER. > 60 ML/MIN (>=60 (CALC)); POTASSIUM 3.9 mmol/l (3.5-5.1); SODIUM 139 mmol/l (137-146)
[2018-01-30] MEDS ORDERED: CIPROFLOXACN500 MG PO (09:12)
[2018-01-30 09:55] VITALS: BP 104/68
== END 2018-01-30 15:32 | DRG 663 ==
LOC: ED 14:59 → ED-I 19:00 → ED 19:40 → MS2 19:41
PROVIDERS: Emergency Medicine; Nurse Practitioner Family; Urology; ADMIT Internal Medicine; ATTEND Internal Medicine
PROC: 0T9B8ZZ Drainage of Bladder, Via Natural or Artificial Opening Endoscopic (ICD-10-PCS; principal; 2018-01-28)
PROC: 0W3R8ZZ Control Bleeding in Genitourinary Tract, Via Natural or Artificial Opening Endoscopic (ICD-10-PCS; 2018-01-28)
DX: S37.39XA Other injury of urethra, initial encounter (principal); D68.32 Hemorrhagic disorder due to extrinsic circulating anticoagulants; R31.0 Gross hematuria; T45.515A Adverse effect of anticoagulants, initial encounter; I10 Essential (primary) hypertension; I48.91 Unspecified atrial fibrillation; J44.9 Chronic obstructive pulmonary disease, unspecified; F03.90 Unspecified dementia, unspecified severity, without behavioral disturbance, psychotic disturbance, mood disturbance, and anxiety; M19.90 Unspecified osteoarthritis, unspecified site; E78.00 Pure hypercholesterolemia, unspecified; E78.5 Hyperlipidemia, unspecified; N40.1 Benign prostatic hyperplasia with lower urinary tract symptoms; N39.498 Other specified urinary incontinence; N32.89 Other specified disorders of bladder; Y84.6 Urinary catheterization as the cause of abnormal reaction of the patient, or of later complication, without mention of misadventure at the time of the procedure; Z87.891 Personal history of nicotine dependence
CPT/HCPCS: C1769; J0692; J1956

== ENCOUNTER 2018-02-08 15:31 | Observation (INO) | payer MEDICARE, BC ==
[~2018-02-08] VITALS: Ht 182.9 cm; Wt 86.7 kg
[~2018-02-08 15:31] MED LIST changes: +CIPROFLOXACN500 MG PO
[2018-02-08 16:54] LABS: IMMATURE GRANULOCYTES 0.8 % (0.0-5.0); MEAN CELL VOLUME 94.9 fL CALC (80.0-100.0); MEAN CORPUSCULAR HGB 29.3 pG CALC (26.0-32.0); MEAN CORPUSCULAR HGB CONC 30.8 g/L CALC (32.0-36.0); NEUT# 7.49 thou/uL (1.82-7.42); RED BLOOD COUNT 4.75 mill/uL (4.70-6.10); RED CELL DISTRI WIDTH 14.9 % (11.5-15.5)
[2018-02-08 16:55] LABS: HEMATOCRIT 45.1 % (39.0-50.0); HEMOGLOBIN 13.9 g/dl (14.0-18.0)
[2018-02-08 17:06] LABS: ANION GAP 13 (6-22 (CALC)); BUN 23 mg/dL (8-23); BUN/CREATININE RATIO 23 (12-20 (CALC)); CARBON DIOXIDE 27 mmol/l (22-30); CHLORIDE 105 mmol/l (95-108); GFR > 60 ML/MIN (>=60 (CALC)); GFR FOR AFR.AMER. > 60 ML/MIN (>=60 (CALC)); POTASSIUM 4.6 mmol/l (3.5-5.1); SODIUM 141 mmol/l (137-146)
[2018-02-08 17:07] LABS: INTERNATIONAL NORMALIZED RATIO 1.1 RATIO (0.7-1.3); PROTHROMBIN TIME 12.5 SECONDS (9.0-12.5)
[2018-02-08] MEDS ORDERED: ASPIRIN 81 LOW81 MG PO (18:53)
[2018-02-08] MEDS ORDERED: WARFARIN1 MG PO (19:04)
[2018-02-08 19:50] VITALS: BP 132/75
[2018-02-09 04:00] VITALS: BP 138/82
[2018-02-09 08:00] VITALS: BP 107/66
== END 2018-02-09 14:35 ==
LOC: ED 15:31 → ED-I 17:33 → ED 17:36 → MS2 17:37
PROVIDERS: Family Medicine; ADMIT Internal Medicine; ATTEND Internal Medicine
PROC: 3E1K78Z Irrigation of Genitourinary Tract using Irrigating Substance, Via Natural or Artificial Opening (ICD-10-PCS; principal; 2018-02-08)
DX: R31.9 Hematuria, unspecified (principal); D68.32 Hemorrhagic disorder due to extrinsic circulating anticoagulants; T45.515A Adverse effect of anticoagulants, initial encounter; I10 Essential (primary) hypertension; I48.91 Unspecified atrial fibrillation; J44.9 Chronic obstructive pulmonary disease, unspecified; F03.90 Unspecified dementia, unspecified severity, without behavioral disturbance, psychotic disturbance, mood disturbance, and anxiety; M19.90 Unspecified osteoarthritis, unspecified site; Z98.890 Other specified postprocedural states; Z79.01 Long term (current) use of anticoagulants; Z87.891 Personal history of nicotine dependence

== ENCOUNTER → 2018-04-22 | Outpatient (REF) | payer MEDICARE, BC ==
[~2018-04-22] MED LIST changes: +ASPIRIN 81 LOW81 MG PO
[2018-04-22 09:29] LABS: HEMATOCRIT 40.8 % (39.0-50.0); HEMOGLOBIN 12.8 g/dl (14.0-18.0); IMMATURE GRANULOCYTES 0.6 % (0.0-5.0); MEAN CELL VOLUME 93.8 fL CALC (80.0-100.0); MEAN CORPUSCULAR HGB 29.4 pG CALC (26.0-32.0); MEAN CORPUSCULAR HGB CONC 31.4 g/L CALC (32.0-36.0); NEUT# 3.26 thou/uL (1.82-7.42); RED BLOOD COUNT 4.35 mill/uL (4.70-6.10); RED CELL DISTRI WIDTH 15.7 % (11.5-15.5)
== END | disposition home or self-care (01) ==
LOC: LAB 08:34
PROVIDERS: ATTEND Internal Medicine
DX: R31.9 Hematuria, unspecified (principal)

== ENCOUNTER 2018-08-02 12:09 | Emergency (ER) | payer MEDICARE, BC ==
[~2018-08-02] VITALS: Ht 182.9 cm; Wt 100.0 kg
[~2018-08-02 12:09] MED LIST changes: -MYRBETRIQ25 MG; +MYRBETRIQ25 MG PO
[2018-08-02] MEDS ORDERED: FUROSEMIDE20 MG PO (13:03)
[2018-08-02] MEDS ORDERED: PAROXETINE10 MG PO (13:05)
[2018-08-02] MEDS ORDERED: B121000 MCG PO (13:06)
[2018-08-02] MEDS ORDERED: CETIRIZINE10 MG PO (13:09)
[2018-08-02] MEDS ORDERED: DOXYCYCL HYC100 MG PO (13:11)
[2018-08-02 14:39] VITALS: BP 136/75
== END 2018-08-02 14:39 | disposition home or self-care (01) ==
LOC: ED 12:09
DX: Z04.3 Encounter for examination and observation following other accident (principal); J44.9 Chronic obstructive pulmonary disease, unspecified; M19.90 Unspecified osteoarthritis, unspecified site; E78.00 Pure hypercholesterolemia, unspecified; F03.90 Unspecified dementia, unspecified severity, without behavioral disturbance, psychotic disturbance, mood disturbance, and anxiety; I10 Essential (primary) hypertension; I48.91 Unspecified atrial fibrillation; W18.39XA Other fall on same level, initial encounter; Y93.89 Activity, other specified; Y92.099 Unspecified place in other non-institutional residence as the place of occurrence of the external cause; Z79.01 Long term (current) use of anticoagulants

== ENCOUNTER 2019-04-10 20:34 | Observation (INO) | payer MEDICARE, BC ==
[~2019-04-10] VITALS: Ht 182.9 cm; Wt 88.5 kg
[~2019-04-10 20:34] MED LIST changes: +B121000 MCG PO; +CETIRIZINE10 MG PO; +DOXYCYCL HYC100 MG PO; +FUROSEMIDE20 MG PO
--- NOTE | 2019-04-10 20:54 | NUR ---
PATIENT TO ROOM 10 VIA EMS STRETCHER FOR BEDSIDE TRIAGE.
[2019-04-10 21:24] LABS: HEMATOCRIT 41.1 % (39.0-50.0); HEMOGLOBIN 13.3 g/dl (14.0-18.0); IMMATURE GRANULOCYTES 0.3 % (0.0-5.0); MEAN CELL VOLUME 93.4 fL CALC (80.0-100.0); MEAN CORPUSCULAR HGB 30.2 pG CALC (26.0-32.0); MEAN CORPUSCULAR HGB CONC 32.4 g/L CALC (32.0-36.0); NEUT# 6.51 thou/uL (1.82-7.42); RED BLOOD COUNT 4.4 mill/uL (4.70-6.10); RED CELL DISTRI WIDTH 14.5 % (11.5-15.5)
[2019-04-10 21:42] LABS: ACT PARTIAL THROMBO TIME 27.2 SECONDS (20.0-32.5); INTERNATIONAL NORMALIZED RATIO 1.2 RATIO (0.7-1.3); PROTHROMBIN TIME 12.3 SECONDS (9.0-12.5)
[2019-04-10 21:44] LABS: ALBUMIN 3.8 g/dL (3.2-5.0); ALKALINE PHOSPHATASE 79 u/l (38-126); AMYLASE 66 u/l (30-110); ANION GAP 15 (6-22 (CALC)); BUN 23 mg/dL (8-23); BUN/CREATININE RATIO 20 (12-20 (CALC)); CARBON DIOXIDE 26 mmol/l (22-30); CHLORIDE 101 mmol/l (95-108); CREATININE 1.2 mg/dL (0.7-1.3); GFR 57 ML/MIN (>=60 (CALC)); GFR FOR AFR.AMER. > 60 ML/MIN (>=60 (CALC)); LIPASE 38 u/l (23-300); MAGNESIUM 2.1 mg/dL (1.6-2.3); POTASSIUM 3.5 mmol/l (3.5-5.1); SGOT/AST 31 u/l (19-48); SODIUM 138 mmol/l (137-146); TOTAL PROTEIN 6.8 g/dL (6.3-8.2)
[2019-04-10 21:45] LABS: BILIRUBIN, TOTAL 1.9 mg/dL (0.0-1.4)
--- NOTE | 2019-04-10 22:00 | NUR ---
HAVING DIFFICULTY SWALLOWING. DISCUSSED WITH MD CRAIGO
--- NOTE | 2019-04-10 23:00 | NUR ---
NO CLINICAL CHANGE GENERALIZED PETECHIAL RASH, LEFT LEG CELLULITIS
[2019-04-10 23:34] LABS: URINE BLOOD DIPSTICK MODERATE (NEGATIVE); URINE COLOR YELLOW; URINE GLUCOSE - DIPSTICK NEGATIVE (NEGATIVE); URINE KETONE TRACE mg/dL (NEGATIVE); URINE NITRITE - DIPSTICK NEGATIVE (Negative); URINE PH 5.5 (4.5-8.0); URINE PROTEIN - DIPSTICK NEGATIVE (NEG-TRACE); URINE SPECIFIC GRAVITY 1.025
[2019-04-10 23:38] LABS: URINE BILIRUBIN - DIPSTICK NEGATIVE (NEGATIVE)
[2019-04-10 23:40] LABS: URINE LEUK ESTERASE NEGATIVE (NEGATIVE)
[2019-04-10 23:41] LABS: URINE EPITHELIAL CELLS FEW EPI/hpf (0-FEW)
[2019-04-10 23:42] LABS: URINE BACTERIA FEW hpf; URINE MUCUS MODERATE hpf (NONE-FEW)
--- NOTE | 2019-04-10 23:45 | NUR ---
Admission Note Report Given to: BRYNN FITZGERALD Transported by: Wheelchair X Stretcher Transported with: X Nurse Transporter X Patent IV O2 Piccolo Mechanic
[2019-04-11] VITALS (8 sets, daily range): BP systolic 98–120; BP diastolic 46–74
--- NOTE | 2019-04-11 00:20 | NUR ---
Received report from ER nurse. Patient arrived to floor via stretcher. No s/s of distress. A&O to self. Respirations even and unlabored. Muniz catheter inserted in ED. Rash on entire body. Left lower leg red and swolled due to cellulitis. IV antibiotics infusing. Call light in reach. Will continue to monitor.
--- NOTE | 2019-04-11 04:10 | NUR ---
Patient sleeping in bed. Respirations even and unlabored. No s/s of distress. Patient very hard to wake up but when asked a question will moan to acknowledge you. Vitals stable. Call light in reach. Will continue to monitor.
--- NOTE | 2019-04-11 08:30 | NUR ---
ASSESSMENT DONE. PT IS A&O X1. PT DENIES PAIN. RESPS EVEN AND UNLABORED. VITAL IS PATENT WITH YELLOW URINE. PT HAS RASH/HIVES IN ENTIRE BODY. LEGS ARE MIDLY TO MODREATED RED AND WARM TO THE TOUCH. CALL LIGHT IN REACH. BED ALARM IN PLACE FOR SAFETY.PER DAMARI FROM [facility] PT LAST BM WAS 04/08. NOTIFIED DR. BE RE: BM.
--- NOTE | 2019-04-11 12:00 | NUR ---
INTERACTIVE MARKETING STRATEGIST SETUP PT EAT HIS LUNCH. PT IS EATING WITH NO S/S OF DISTRESS NOTED. PT DENIES ANY OTHER NEEDS AT THIS TIME. CALL LIGHT IN REACH.
--- NOTE | 2019-04-11 12:43 | NUR ---
S: LISA MONTEZ is a 88 M who presents with CELLULITIS. He has a history of CELLULITIS . All medications in patient's chart were reviewed. O: VS: BP 105/55, P 93, RR 20 ,T 97.6 W 88 kg, HT 72IN, Scr=1.2 ,CrCl= 50ml/min A: Blood culture <is pending/show> which is sensitive to <>. Urine culture <is pending/show> which is sensitive to <>. P: Patient is on VANCOMYCIN. Vancomycin ordered for pharmacy to dose. Start Vancomycin 1 GRAM IV Q12H. Vancomycin trough is drawn before the 4th dose on 04/12/19 1100. Vancomycin goal trough is between <10-15mcg/ml>. Pharmacy will follow and or advise on antibiotics use as needed. JODEE MARSHALLD
--- NOTE | 2019-04-11 13:14 | NUR ---
PT IS CONFUSED AND PULL HIS IV OUT. ALSO REMOVE HIS GOWN. REORIENT PT. BED ALARM IN PLACE. CALL LIGHT IN REACH.
--- NOTE | 2019-04-11 15:52 | NUR ---
PT IS RESTING IN BED AND DENIES NEEDS AT THIS TIME. IVF INFUSING WELL. BED ALARM IN PLACE AND CALL LIGHT IN REACH.
--- NOTE | 2019-04-11 19:30 | NUR ---
PT IS UPRIGHT IN BED W/LIGHTS AND TV ON. VITAL CATHETER IS DRAINING PINK BLOODY URINE AT THIS TIME. STRAP WAS DISCONNECTED AND PT HAD BEEN FOUND BY AIDE PULLING ON CATHETER. CATHETER APPEARS TO BE DRAINING AT THIS TIME, WILL CONTINUE TO MONITOR AND PHYSCIAN WILL BE NOTIFIED. CATHETER IS STILL IN PLACE STRAP REPLACED/SECURED. PT COMMUNICATED W/ME, BUT DENIED KNOWING THAT HE HAD PULLED ON CATHETER. WHEN I WALKED INTO ROOM AND SPOKE TO PT SAYING, "HEY," PT REPLIED BACK, "HEY." MINIMAL COMMUNICATION AFTER THAT. WHEN ASKED WHY HE PULLED ON CATHETER HE REPLIED, "I DON'T KNOW." WILL CONTINUE TO MONITOR PT. BED ALARM ON AND CALL LIGHT NEXT TO HAND.
--- NOTE | 2019-04-11 20:23 | NUR ---
PT MEDICATED ORDERS PROVIDE. PT WAS SCRATCHING HIS HEAD AND APPEARED TO BE ITCHING UPON MY ENTERING THE ROOM. MEDICATED PT W/BENEDRYL AND REPLENISHED IVF AT THIS TIME. WILL CONTINUE TO MONITOR. PT REPORTED BEING "BORED TO ," PT PROVIDED W/MAGEZINES/APPEARED TO APPRECIATE AND IS LOOKING AT THEM AT THIS TIME. CALL LIGHT AT SIDE AND BED ALARM ON.
--- NOTE | 2019-04-12 00:14 | NUR ---
PT MEDICATED W/IV ANTIBIOTIC THERAPY. IVF ARE RUNNING/SITE APPEARS HEALTHY AT THIS TIME. PT WAS SLEEPING I ENTERED THE ROOM. TV IS ON LIGHTS ARE LOW. PT ASSISTED IN REPOSITIONING FOR COMFORT. PT DENIES ANY OTHER NEEDS AT THIS TIME. ASSISTED PT W/PO FLUIDS. CALL LIGHT AT SIDE AND PT REORIENTED TO ITS USE.
[2019-04-12 04:48] VITALS: BP 94/56
[2019-04-12 05:39] LABS: HEMATOCRIT 36.9 % (39.0-50.0); HEMOGLOBIN 11.7 g/dl (14.0-18.0); MEAN CELL VOLUME 93.9 fL CALC (80.0-100.0); MEAN CORPUSCULAR HGB 29.8 pG CALC (26.0-32.0); MEAN CORPUSCULAR HGB CONC 31.7 g/L CALC (32.0-36.0); RED BLOOD COUNT 3.93 mill/uL (4.70-6.10); RED CELL DISTRI WIDTH 14.6 % (11.5-15.5)
[2019-04-12 05:49] LABS: ANION GAP 12 (6-22 (CALC)); BUN 26 mg/dL (8-23); BUN/CREATININE RATIO 25 (12-20 (CALC)); CARBON DIOXIDE 23 mmol/l (22-30); CHLORIDE 108 mmol/l (95-108); GFR > 60 ML/MIN (>=60 (CALC)); GFR FOR AFR.AMER. > 60 ML/MIN (>=60 (CALC)); SODIUM 139 mmol/l (137-146)
--- NOTE | 2019-04-12 07:00 | NUR ---
SHIFT CHANGE REPORT, PT AWAKE AND ALERT, NO C/O PAIN @ THIS TIME, RED RASH OBSERVED OVER WHOLE BODY, IVF INFUSING, CALL RICH IN REACH.
[2019-04-12 08:47] VITALS: BP 104/61
[2019-04-12 09:06] LABS: ALBUMIN 2.8 g/dL (3.2-5.0); BILIRUBIN, TOTAL 0.7 mg/dL (0.0-1.4); TOTAL PROTEIN 5.4 g/dL (6.3-8.2)
--- NOTE | 2019-04-12 09:41 | NUR ---
DR HAILE CONKLIN, EVALUATED RASH ON PT, MADE CHANGES TO MEDICATIONS, PT COMPLIANT.
--- NOTE | 2019-04-12 15:25 | NUR ---
PT FOUND STANDING AT BEDSIDE IN POOL OF BLOOD WITH BLOOD FLOWING FROM PENIS, IV TUBING BROKEN WITH CATHETER STILL IN PLACE BUT BLEEDING FROM CATHETER. ASSISTED TO RECLINED TO CLEAN LINNES SATURATED WITH BLOOD. BALLOON FROM CATHETER FOUND ON TABLE AND MISSING PARTS OF IV TUBING FOUND IN BED. DR BE NOTIFIED OF CONDITION VIA MESSAGING, AWAITING RESPONSE AT THIS TIME.
--- NOTE | 2019-04-12 15:25 | NUR ---
PT FOUND STANDING AT BEDSIDE IN POOL OF BLOOD WITH BLOOD FLOWING FROM PENIS, IV TUBE BROKEN WITH CATHETER STILL IN PLACE BUT BLEEDING FROM END OF BROKEN CATHETER. ASSISTED TO RECLINER TO CLEAN BED LINNENS SATURATED WITH BLOOD. BALLOON FROM CATHETER FOUND ON TABLE AND MISSING PART OF IV CATHETER FOUND ON BED. DR BE NOTIFIED OF CONDITION VIA MESSAGING, AWAITING RESPONSE AT THIS TIME.
--- NOTE | 2019-04-12 15:49 | NUR ---
DR BE RESPONDED OWTH ORDERS TO CONSULT UROLOGIST CHIVO, DR DEGROOT CALLED BUT REPORTED HE IS UNAVAILABLE AT THIS TIME. DR PYLE WAS CALLED AND MESSAGE LEFT ON PHONE, WILL CONTINUE TO MONITOR.
--- NOTE | 2019-04-12 16:00 | NUR ---
OFFICE OF DR PYLE CALLED, SPOKE WITH NEVIN WHO ADVISED ME DR DEGROOT PROCESSING TECHNOLOGIST, I ADVISED HER I ALREADY CALLED DR WHITE WHO ADVISED ME DR PYLE IS PROCESSING TECHNOLOGIST, SHE VERIVIED WITH DR PYLE THAT DR DEGROOT IS PROCESSING TECHNOLOGIST, WILL HAVE DR BE ADDRESS SITUATION.
--- NOTE | 2019-04-12 16:04 | NUR ---
DR BE NOTIFIED OF PROBLEMS GETTING UROLOGIST TO SEE PT AND WILL FOLLOW-UP.
--- NOTE | 2019-04-12 16:16 | NUR ---
DR BE CONTACTED UROLOGIST AND GAVE ORDERS TO REPLACE VITAL CATHETER.
[2019-04-12 16:23] VITALS: BP 100/63
--- NOTE | 2019-04-12 17:36 | NUR ---
PT REMOVED PREVIOUS VITAL CATHETER, MD ADVISED TO REPLACE CATHETER, CATHETER REPLACED, PT STILL BLEEDING FROM URETER. DR BE HERE AND STATED UROLOGIST WILL FOLLOW-UP AND HE HAS ALREADY CONTACTED DR PYLE WHO IS ON TODAY AND ZANE ON TOMORROW.
--- NOTE | 2019-04-12 19:30 | NUR ---
PATIENT RESTING IN BED AT THIS TIME WITH SITTER AT BEDSIDE. PATIENT WITH HOB ELEVATED. PATIENT AWAKE ALERT AND ORIENTEDX2. PATIENT WITH O2 VIA NASAL CANNULA IN PLACE. PATIENT WITH RED RASH ALL OVER HIS BODY AND FACE.PATIENT WITH VITAL CATH IN PLACE WITH BLOODY DRAINAGE AROUND THE PENIAL/URETRAL-MINIMAL URINE OUTPUT AT THIS TIME. LLE WITH SWELLING NOTED. ENCOURAGE TO KEEP LLE ELEVATED. IV SITE TO RIGHT AC INTACT WITH IVF PATENT AND INFUSING AT 100CC/HR.SAFETY PRECAUTIONS REINFORCED. CALL LIGHT IN REACH. WILL CONT TO MONITOR.
[2019-04-12 20:00] VITALS: BP 123/67
--- NOTE | 2019-04-12 22:05 | NUR ---
PATIENT RESTING IN BED-VERY LITTLE URINE IN DRAINAGE BAD. PATIENT IS HAVING BRIGHT RED BLOOD AROUND THE PENIAL/URETHRA JUNCTION. VITAL CATH BALLOW WAS DEFLATED AND THEN ADVANCED AND AT FIRST HAD GROSS HEMATURIA FOLLOWED BY CLEAR JULIANA URINE. MINIMAL CLOTS NOTED. VITAL CATH CARE WAS DONE USING SOAP AND WATER. 4/4 DRAIN SPONGE APPLIED TO PENIAL/URETHRA JUNCTION. PATIENT APPETITE WAS POOR AT DINNER. PATIENT PROVIDED WITH MARGARITA CRACKERS WITH PEANUT BUTTER AND JELLY. ALSO WAS GIVEN MILK. ATE SNACK WELL WITHOUT ANY DIFFICULTY. SITTER AT BEDSIDE FOR PATIENT SAFETY. CALL LIGHT IN REACH. WILL CONT TO MONITOR.
--- NOTE | 2019-04-13 02:00 | NUR ---
PATIENT RESTING IN BED-APPEARS SLEEPING WITH HOB ELEVATED AND EYES CLOSED. IV SITE TO RIGHT FOREARM INTACT WITH IVF NS PATENT AND INFUSING AT 100CC/HR. O2 VIA NASAL CANNULA IN PLACE. VITAL PATENT AND DRAINING JULIANA URINE. CALL LGHT IN REACH. WILL CONT TO MONITOR.
[2019-04-13 04:00] VITALS: BP 104/59
--- NOTE | 2019-04-13 04:37 | NUR ---
PATIENT RESTING IN BED-VITAL PATENT AND DRAINING SLIGHTLY BLOOD TINGED JULIANA URINE. VITAL CATH CARE WAS GIVEN-SMALL AMT OF BLOODY DRAINAGE NOTED AROUND THE PENIAL/URETHRAL JUNCTION. SITTER REMAINS AT BEDSIDE FOR PATIENT SAFETY. CALL LIGHT IN REACH. WILL CONT TO MONITOR.
[2019-04-13 05:12] LABS: HEMATOCRIT 34.1 % (39.0-50.0); HEMOGLOBIN 10.9 g/dl (14.0-18.0); MEAN CELL VOLUME 93.4 fL CALC (80.0-100.0); MEAN CORPUSCULAR HGB 29.9 pG CALC (26.0-32.0); RED BLOOD COUNT 3.65 mill/uL (4.70-6.10); RED CELL DISTRI WIDTH 14.9 % (11.5-15.5)
[2019-04-13 05:29] LABS: ANION GAP 11 (6-22 (CALC)); BUN 25 mg/dL (8-23); BUN/CREATININE RATIO 26 (12-20 (CALC)); CARBON DIOXIDE 24 mmol/l (22-30); CHLORIDE 109 mmol/l (95-108); GFR > 60 ML/MIN (>=60 (CALC)); GFR FOR AFR.AMER. > 60 ML/MIN (>=60 (CALC)); POTASSIUM 4.1 mmol/l (3.5-5.1); SODIUM 140 mmol/l (137-146)
--- NOTE | 2019-04-13 06:50 | NUR ---
PT REPORT RECIEVED FROM BRYNN GUSMAN. PT WATCHING TELEVISION. SITTER AT BEDSIDE. NO S/S OF DISTRESS. CALL LIGHT IN REACH. WILL CONTINUE TO MONITOR.
[2019-04-13 07:57] VITALS: BP 111/73
--- NOTE | 2019-04-13 07:57 | NUR ---
PT ALERT TO SELF, CONFUSION NOTED. RESP EVEN AND UNLABORED. UPPER LOBES CLEAR. LOWER LOBES DIMINISHED. O2 @2L AT BEDSIDE. BOWEL SOUNDS ACTIVE X4. STRONG RADIAL/PEDAL PULSES. #22 RFA NS @100. SITE APPEARS HEALTHY. SKIN INTACT. PT HAS RED RASH THROUGHOUT BODY. VITAL INTACT; SLIGHT BLOODY DRAINAGE NOTED TO PENIAL OPENING. DARK JULIANA URINE NOTED. NO C/O PAIN OR NEEDS. FROM PT. POC DISCUSSED. SAFETY PRECAUTIONS IN PLACE. SITTER AT BEDSIDE. CALL LIGHT IN REACH. WILL CONTINUE TO MONITOR.
--- NOTE | 2019-04-13 12:55 | NUR ---
D/C INSTRUCTIONS DISCUSSED W/ PT. PT STATES UNDERSTANDING. IV REMOVED; CATHETER INTACT. PT DRESSED; AWAITING SPOUSE.
--- NOTE | 2019-04-13 13:03 | NUR ---
PT WATCHING TELEVISION. NO C/O PAIN OR NEEDS. CALL LIGHT IN REACH. WILL CONTINUE TO MONITOR.
[2019-04-13 14:48] VITALS: BP 126/71
--- NOTE | 2019-04-13 17:19 | NUR ---
PT WATCHING TELEVISION. NO C/O PAIN OR NEEDS. SITTER AT BEDSIDE. CALL LIGHT IN REACH. WILL CONTINUE TO MONITOR.
[2019-04-13 19:43] VITALS: BP 116/69
--- NOTE | 2019-04-13 19:45 | NUR ---
PT AWAKE RESTING IN BED. PT IS ALERT TO NAME ONLY. PLEASANTLY CONFUSED. RESP EVEN AND UNLABORED. LUNGS REVEAL DIMINISHED BREATH SOUNDS. ABD SOFT AND NONDISTENDED WITH BOWEL SOUNDS PRESENT. PT HAS +1 LEFT LOWER EXT EDEMA NOTED. PEDAL PULSES PALPATED BILAT. LEFT LOWER EXT ELEVATED ON A PILLOW. RED RASH NOTED ALL OVER PTS BODY. IV SITE PATENT IN RT WRIST NO REDNESS OR SWELLING AT SITE. IVF NSS AT 100CC/HR. VITAL IS PATENT DRAINING CLEAR JULIANA URINE. PT ASSISTED WITH REPOSITIONING FOR COMFORT. PT OFFERS NO COMPLAINTS. SITTER AT BEDSIDE FOR PTS SAFETY. FREQUENT ROUNDS MADE. CALL RICH WITHIN REACH.
--- NOTE | 2019-04-14 00:30 | NUR ---
PT RESTING IN BED WITH EYES CLOSED. RESP EVEN AND UNLABORED. NO DISTRESS NOTED. IV SITE PATENT. VITAL IS PATENT DRAINING CLEAR JULIANA URINE. SITTER AT BEDSIDE. FREQUENT ROUNDS MADE. CALL RICH WITHIN REACH.
--- NOTE | 2019-04-14 04:30 | NUR ---
PT RESTING IN BED WITH EYES CLOSED. RESP EVEN AND UNLABORED. NO DISTRESS NOTED. IV SITE PATENT. VITAL IS PATENT. SITTER AT BEDSIDE. CALL RICH WITHIN REACH. ASSESSMENT UNCHANGED.
[2019-04-14 05:00] VITALS: BP 137/78
[2019-04-14 05:38] LABS: HEMATOCRIT 35.4 % (39.0-50.0); HEMOGLOBIN 11.3 g/dl (14.0-18.0); MEAN CELL VOLUME 94.1 fL CALC (80.0-100.0); MEAN CORPUSCULAR HGB 30.1 pG CALC (26.0-32.0); MEAN CORPUSCULAR HGB CONC 31.9 g/L CALC (32.0-36.0); RED BLOOD COUNT 3.76 mill/uL (4.70-6.10); RED CELL DISTRI WIDTH 14.9 % (11.5-15.5)
[2019-04-14 05:45] LABS: ANION GAP 10 (6-22 (CALC)); BUN 23 mg/dL (8-23); BUN/CREATININE RATIO 27 (12-20 (CALC)); CARBON DIOXIDE 24 mmol/l (22-30); CHLORIDE 110 mmol/l (95-108); CREATININE 0.9 mg/dL (0.7-1.3); GFR > 60 ML/MIN (>=60 (CALC)); GFR FOR AFR.AMER. > 60 ML/MIN (>=60 (CALC)); POTASSIUM 4.3 mmol/l (3.5-5.1); SODIUM 140 mmol/l (137-146)
--- NOTE | 2019-04-14 06:50 | NUR ---
PT REPORT RECIEVED FROM BRYNN VALDOVINOS. PT SLEEPING. NO S/S OF DISTRESS. CALL LIGHT IN REACH. WILL CONTINUE TO MONITOR.
[2019-04-14 07:17] VITALS: BP 125/82
--- NOTE | 2019-04-14 07:17 | NUR ---
PT ALERT TO SELF W/ CONFUSION. RESP EVEN AND UNLABORED. LUNG SOUNDS CLEAR/DIMINISHED. BOWEL SOUNDS ACTIVE. STRONG RADIAL/PEDAL PULSES. #24 RW NS @100. SITE APPEARS HEALTHY. +1 EDEMA TO LLE. RASH NOTED ALL OVER BODY. FOLE CATHETER INTACT; PALE YELLOW URINE NOTED. PT BUTTOCK SLIGHTLY BOGGY. SKIN INTACT. PT DENIES ANY PAIN OR NEEDS. POC DISCUSSED. SAFETY PRECAUTIONS IN PLACE. SITTER AT BEDSIDE. CALL LIGHT IN REACH. WILL CONTINUE TO MONITOR.
[2019-04-14] MEDS ORDERED: MEDDOSEPAK PO (10:32)
[2019-04-14] MEDS ORDERED: PEPCID20 MG PO (10:32)
[2019-04-14] MEDS ORDERED: BENADRYL 25MG C25 MG PO (10:44)
--- NOTE | 2019-04-14 11:49 | NUR ---
PT EATING LUNCH. NO C/O PAIN OR NEEDS. SITTER AT BEDSIDE. CALL LIGHT IN REACH. WILL CONTINUE TO MONITOR.
--- NOTE | 2019-04-14 12:42 | NUR ---
D/C INSTRUCTIONS DISCUSSED W/ PT. PT STATES UNDERSTANDING. IV REMOVED; CATHETER INTACT. PT DRESSED BY RAILROAD BAGGAGE PORTER, AWAITING [facility].
--- NOTE | 2019-04-14 13:20 | NUR ---
Discharge instructions given. Patient verbalizes understanding of same. Discharged in stable condition [facility]. All belongings sent with pt.
== END 2019-04-14 13:19 | disposition home or self-care (01) ==
LOC: ED 20:34 → ED-I 21:00 → ED 21:59 → MS2 22:00
PROVIDERS: ADMIT Internal Medicine; ATTEND Internal Medicine
PROC: 0T9B70Z Drainage of Bladder with Drainage Device, Via Natural or Artificial Opening (ICD-10-PCS; principal; 2019-04-10)
PROC: 0T9B70Z Drainage of Bladder with Drainage Device, Via Natural or Artificial Opening (ICD-10-PCS; 2019-04-12)
DX: D69.0 Allergic purpura (principal); L50.0 Allergic urticaria; T36.0X5A Adverse effect of penicillins, initial encounter; L03.116 Cellulitis of left lower limb; S37.30XA Unspecified injury of urethra, initial encounter; R31.0 Gross hematuria; I48.91 Unspecified atrial fibrillation; I10 Essential (primary) hypertension; J44.9 Chronic obstructive pulmonary disease, unspecified; E78.5 Hyperlipidemia, unspecified; F03.90 Unspecified dementia, unspecified severity, without behavioral disturbance, psychotic disturbance, mood disturbance, and anxiety; N40.1 Benign prostatic hyperplasia with lower urinary tract symptoms; R33.8 Other retention of urine; E86.0 Dehydration; X58.XXXA Exposure to other specified factors, initial encounter; Y92.239 Unspecified place in hospital as the place of occurrence of the external cause; Z87.440 Personal history of urinary (tract) infections; Z87.891 Personal history of nicotine dependence; Z79.82 Long term (current) use of aspirin
CPT/HCPCS: J0692

== ENCOUNTER 2019-08-02 | Emergency (ER) | payer MEDICARE, BC ==
[~2019-08-02] MED LIST changes: +BENADRYL 25MG C25 MG PO; +MEDDOSEPAK PO; +PEPCID20 MG PO
[2019-08-02 08:03] LABS: HEMATOCRIT 37.8 % (39.0-50.0); HEMOGLOBIN 12.2 g/dl (14.0-18.0); IMMATURE GRANULOCYTES 0.2 % (0.0-5.0); MEAN CELL VOLUME 92.4 fL CALC (80.0-100.0); MEAN CORPUSCULAR HGB 29.8 pG CALC (26.0-32.0); MEAN CORPUSCULAR HGB CONC 32.3 g/L CALC (32.0-36.0); NEUT# 2.76 thou/uL (1.82-7.42); RED BLOOD COUNT 4.09 mill/uL (4.70-6.10); RED CELL DISTRI WIDTH 15.1 % (11.5-15.5)
[2019-08-02] MEDS ORDERED: DITROPAN5 MG/TA1 PO (08:16)
[2019-08-02 08:17] LABS: ALKALINE PHOSPHATASE 66 u/l (38-126); ANION GAP 12 (6-22 (CALC)); BUN 37 mg/dL (8-23); BUN/CREATININE RATIO 26 (12-20 (CALC)); CARBON DIOXIDE 24 mmol/l (22-30); CHLORIDE 106 mmol/l (95-108); CREATININE 1.4 mg/dL (0.7-1.3); GFR 48 ML/MIN (>=60 (CALC)); GFR FOR AFR.AMER. 58 ML/MIN (>=60 (CALC)); POTASSIUM 4.1 mmol/l (3.5-5.1); SGOT/AST 16 u/l (19-48); SODIUM 138 mmol/l (137-146); TOTAL PROTEIN 6.4 g/dL (6.3-8.2)
[2019-08-02 08:21] LABS: ALBUMIN 3.6 g/dL (3.2-5.0); BILIRUBIN, TOTAL 1.7 mg/dL (0.0-1.4)
[2019-08-02 09:25] LABS: URINE BILIRUBIN - DIPSTICK NEGATIVE (NEGATIVE); URINE BLOOD DIPSTICK NEGATIVE (NEGATIVE); URINE COLOR YELLOW; URINE GLUCOSE - DIPSTICK NEGATIVE (NEGATIVE); URINE KETONE NEGATIVE (NEGATIVE); URINE LEUK ESTERASE NEGATIVE (NEGATIVE); URINE NITRITE - DIPSTICK NEGATIVE (Negative); URINE PH 5.5 (4.5-8.0); URINE PROTEIN - DIPSTICK NEGATIVE (NEG-TRACE); URINE SPECIFIC GRAVITY 1.015
== END 2019-08-02 10:00 ==
PROVIDERS: Family Medicine
DX: R25.1 Tremor, unspecified (principal); I10 Essential (primary) hypertension; I48.91 Unspecified atrial fibrillation; J44.9 Chronic obstructive pulmonary disease, unspecified; F03.90 Unspecified dementia, unspecified severity, without behavioral disturbance, psychotic disturbance, mood disturbance, and anxiety; R94.31 Abnormal electrocardiogram [ECG] [EKG]

== ENCOUNTER 2019-09-01 | Observation (INO) | payer MEDICARE, BC ==
[~2019-09-01] MED LIST changes: +DITROPAN5 MG/TA1 PO
[2019-09-01 13:02] LABS: HEMATOCRIT 43.4 % (39.0-50.0); HEMOGLOBIN 13.7 g/dl (14.0-18.0); IMMATURE GRANULOCYTES 0.5 % (0.0-5.0); MEAN CELL VOLUME 94.8 fL CALC (80.0-100.0); MEAN CORPUSCULAR HGB 29.9 pG CALC (26.0-32.0); MEAN CORPUSCULAR HGB CONC 31.6 g/L CALC (32.0-36.0); NEUT# 6.14 thou/uL (1.82-7.42); RED BLOOD COUNT 4.58 mill/uL (4.70-6.10); RED CELL DISTRI WIDTH 15.2 % (11.5-15.5)
[2019-09-01 13:31] LABS: ALBUMIN 3.9 g/dL (3.2-5.0); ALKALINE PHOSPHATASE 75 u/l (38-126); ANION GAP 15 (6-22 (CALC)); BUN 23 mg/dL (8-23); BUN/CREATININE RATIO 20 (12-20 (CALC)); CARBON DIOXIDE 21 mmol/l (22-30); CHLORIDE 106 mmol/l (95-108); CREATININE 1.1 mg/dL (0.7-1.3); GFR > 60 ML/MIN (>=60 (CALC)); GFR FOR AFR.AMER. > 60 ML/MIN (>=60 (CALC)); POTASSIUM 4.1 mmol/l (3.5-5.1); SGOT/AST 17 u/l (19-48); SODIUM 138 mmol/l (137-146); TOTAL PROTEIN 7.1 g/dL (6.3-8.2)
[2019-09-01 13:33] LABS: BILIRUBIN, TOTAL 3.5 mg/dL (0.0-1.4)
[2019-09-01 13:34] LABS: INTERNATIONAL NORMALIZED RATIO 1.1 RATIO (0.7-1.3); PROTHROMBIN TIME 11.6 SECONDS (9.0-12.5)
[2019-09-01 14:48] LABS: URINE BILIRUBIN - DIPSTICK NEGATIVE (NEGATIVE); URINE BLOOD DIPSTICK NEGATIVE (NEGATIVE); URINE COLOR YELLOW; URINE GLUCOSE - DIPSTICK NEGATIVE (NEGATIVE); URINE KETONE 15 mg/dL (NEGATIVE); URINE LEUK ESTERASE NEGATIVE (NEGATIVE); URINE NITRITE - DIPSTICK NEGATIVE (Negative); URINE PROTEIN - DIPSTICK TRACE mg/dL (NEG-TRACE)
[2019-09-01 17:00] VITALS: BP 102/59
[2019-09-01 19:09] VITALS: BP 101/54
[2019-09-02 03:37] VITALS: BP 95/62
[2019-09-02 04:56] LABS: HEMATOCRIT 40.9 % (39.0-50.0); IMMATURE GRANULOCYTES 0.1 % (0.0-5.0); MEAN CORPUSCULAR HGB 29.5 pG CALC (26.0-32.0); MEAN CORPUSCULAR HGB CONC 31.8 g/L CALC (32.0-36.0); NEUT# 6.07 thou/uL (1.82-7.42); RED BLOOD COUNT 4.4 mill/uL (4.70-6.10); RED CELL DISTRI WIDTH 15.2 % (11.5-15.5)
[2019-09-02 05:14] LABS: ANION GAP 14 (6-22 (CALC)); BUN 31 mg/dL (8-23); BUN/CREATININE RATIO 23 (12-20 (CALC)); CARBON DIOXIDE 22 mmol/l (22-30); CHLORIDE 108 mmol/l (95-108); CREATININE 1.3 mg/dL (0.7-1.3); GFR 52 ML/MIN (>=60 (CALC)); GFR FOR AFR.AMER. > 60 ML/MIN (>=60 (CALC)); MAGNESIUM 2.1 mg/dL (1.6-2.3); POTASSIUM 3.9 mmol/l (3.5-5.1); SODIUM 139 mmol/l (137-146)
[2019-09-02 07:40] VITALS: BP 110/68
[2019-09-02] MEDS ORDERED: Levaquin PO (11:27)
[2019-09-02 11:55] VITALS: BP 106/61
== END 2019-09-02 14:36 ==
PROVIDERS: Emergency Medicine; Nurse Practitioner Family; ADMIT Internal Medicine
PROC: 0T9B70Z Drainage of Bladder with Drainage Device, Via Natural or Artificial Opening (ICD-10-PCS; principal; 2019-09-01)
DX: J18.9 Pneumonia, unspecified organism (principal); J44.0 Chronic obstructive pulmonary disease with (acute) lower respiratory infection; F03.90 Unspecified dementia, unspecified severity, without behavioral disturbance, psychotic disturbance, mood disturbance, and anxiety; I10 Essential (primary) hypertension; I48.91 Unspecified atrial fibrillation; E78.5 Hyperlipidemia, unspecified; N40.0 Benign prostatic hyperplasia without lower urinary tract symptoms; Z87.891 Personal history of nicotine dependence
CPT/HCPCS: G0378

== ENCOUNTER 2019-12-30 16:21 | Observation (INO) | payer MEDICARE, BC ==
[~2019-12-30] VITALS: Ht 162.6 cm; Wt 82.8 kg
[~2019-12-30 16:21] MED LIST changes: +Levaquin PO
--- NOTE | 2019-12-30 16:21 | NUR ---
PT TO ROOM VIA EMS FOR BEDSIDE TRIAGE
--- NOTE | 2019-12-30 17:05 | NUR ---
PT ALERT AND ORIENTED TO SELF. CHANGED TO GOWN. MONITORS IN PLACE. PT HAS NO COMPLAINTS. EMS REPORTS PTS ARMS SHAKING PER NURSING STAFF.
[2019-12-30 17:37] LABS: URINE BILIRUBIN - DIPSTICK NEGATIVE (NEGATIVE); URINE BLOOD DIPSTICK MODERATE (NEGATIVE); URINE COLOR YELLOW; URINE GLUCOSE - DIPSTICK NEGATIVE (NEGATIVE); URINE KETONE NEGATIVE (NEGATIVE); URINE PH 7.5 (4.5-8.0); URINE PROTEIN - DIPSTICK 30 mg/dL (NEG-TRACE)
[2019-12-30 17:41] LABS: HEMATOCRIT 41.8 % (39.0-50.0); HEMOGLOBIN 13.3 g/dl (14.0-18.0); IMMATURE GRANULOCYTES 0.6 % (0.0-5.0); MEAN CELL VOLUME 92.9 fL CALC (80.0-100.0); MEAN CORPUSCULAR HGB 29.6 pG CALC (26.0-32.0); MEAN CORPUSCULAR HGB CONC 31.8 g/dL CAL (32.0-36.0); NEUT# 2.75 thou/uL (1.82-7.42); RED BLOOD COUNT 4.5 mill/uL (4.70-6.10); RED CELL DISTRI WIDTH 14.3 % (11.5-15.5)
[2019-12-30 17:42] LABS: URINE LEUK ESTERASE MODERATE (NEGATIVE); URINE NITRITE - DIPSTICK POSITIVE (Negative)
--- NOTE | 2019-12-30 17:45 | NUR ---
PT TO XRAY
[2019-12-30 18:29] LABS: URINE BACTERIA MANY hpf; URINE RBC TNTC RBC/hpf (0-5); URINE SQUAMOUS EPITHELIAL CELL FEW EPI/hpf (0-FEW); URINE WBC TNTC WBC/hpf (0-5)
--- NOTE | 2019-12-30 18:44 | NUR ---
LABS REDRAW AND TAKEN TO LAB. ANTIBIOTICS INFUSING
--- NOTE | 2019-12-30 19:05 | NUR ---
PT RESTING. APPEARS TO BE SLEEPING. RESP EASY REG. VSS
[2019-12-30 19:07] LABS: ALBUMIN 3.7 g/dL (3.2-5.0); ALKALINE PHOSPHATASE 77 u/l (38-126); BUN 21 mg/dL (8-23); BUN/CREATININE RATIO 15 (12-20 (CALC)); CHLORIDE 103 mmol/l (95-108); CPK 37 u/l (52-200); CREATININE 1.4 mg/dL (0.7-1.3); GFR 48 ML/MIN (>=60 (CALC)); GFR FOR AFR.AMER. 58 ML/MIN (>=60 (CALC)); POTASSIUM 4.6 mmol/l (3.5-5.1); SGOT/AST 27 u/l (19-48); SODIUM 135 mmol/l (137-146); TOTAL PROTEIN 6.6 g/dL (6.3-8.2)
[2019-12-30 19:11] LABS: ANION GAP 10 (6-22 (CALC)); BILIRUBIN, TOTAL 1.5 mg/dL (0.0-1.4); CARBON DIOXIDE 27 mmol/l (22-30)
--- NOTE | 2019-12-30 19:37 | NUR ---
SECOND SET OF BLOOD CULTURES OBTAINED WELL A RECOLLECT OF THE BLUE TOP. DR. CESPEDES TO BEDSIDE TO EVAL PT. PT A/O PLEASANTLY CONFUSED. ORIENTED TO NAME. NOT TO TIME OR PLACE.
--- NOTE | 2019-12-30 19:49 | NUR ---
DR THOMASON CALLED AND GAVE ORDERS FOR ADMISSION/FAXED TO PHARM. AWAITING ADMIT BED.
[2019-12-30 20:08] LABS: ACT PARTIAL THROMBO TIME 26.4 SECONDS (20.0-32.5); INTERNATIONAL NORMALIZED RATIO 1.1 RATIO (0.7-1.3); PROTHROMBIN TIME 11.4 SECONDS (9.0-12.5)
--- NOTE | 2019-12-30 20:11 | NUR ---
ATTEMPTED TO CALL REPORT...WILL CALL BACK.
--- NOTE | 2019-12-30 20:19 | NUR ---
REPORT TO JT/MED-SURG.
--- NOTE | 2019-12-30 20:24 | NUR ---
TO FLOOR VIA STRETCHER. VSS. ALERT BUT NOT FULLY ORIENTED. MASK WORN FOR TRANSPORT. TRANSFERRED TO BED WITH ORANGE SLIDE SHEET.
[2019-12-30 20:35] VITALS: BP 111/60
--- NOTE | 2019-12-30 20:35 | NUR ---
PT ARRIVED TO THE FLOOR VIA STRETCHER ACCOMPANIED BY ED NURSE. PT APPEARS IN STABLE CONDITION AND PLACED IN COVID PRECAUTIONARY ROOM. PT WAS UNABLE TO SELF AMBULATE, ASSISTED W/SLIDER TO BED. PT ASSESSMENT COMPLETED AT THIS TIME. PT HAD JEANS ON WHICH WERE SOILED W/URINE. PT ALSO STILL HAD A SMALL AMOUNT OF OLD STOOL UNDER IN FOLDS OF SKIN AROUND SCROTUM. PT WAS WEARING A BRIEF UPON ARRIVING. PT CLEANED AND PROVIDED ZACK CARE/SKIN CARE/BED BATH. NEW GOWN AND BLANKETS PROVIDED. CAMERA AND BED ALARM PLACED FOR PT OBSERVATION FOR SAFETY. CALL LIGHT PLACED WITH REACH AND PT ADVISED OF ITS USE. PT LOC TO SELF ONLY.
--- NOTE | 2019-12-30 22:13 | NUR ---
PT MEDICATED AT THIS TIME. NO S/O DISTRESS NOTED. PT SLEEPING. CAMERA ON PT FOR CLOSE OBSERVATION. BED ALARM ALSO SET AT THIS TIME.
--- NOTE | 2019-12-31 01:50 | NUR ---
PT SLEEPING, NO S/O DISTRESS NOTED.
[2019-12-31 04:21] VITALS: BP 95/52
--- NOTE | 2019-12-31 04:30 | NUR ---
AIDE IN W/PT, NO S/O DISTRESS NOTED. PT REPOSITIONED IN THE BED. BED ALARM AND CAMERA ON.
--- NOTE | 2019-12-31 06:14 | NUR ---
PT SLEEPING, NO S/O DISTRESS NOTED. IVF REPLENISHED AT THIS TIME.
[2019-12-31 08:10] VITALS: BP 105/57
--- NOTE | 2019-12-31 08:10 | NUR ---
PT RESTING IN BED EATING BREAKFAST, PT ALERT TO SELF. BED ALARM FOR SAFETY. DISCUSSED POC, ASSESSMENT COMPLETED. PT OBEYS COMMANDS. SKIN INTACT, REDNESS TO BUTTOCK, PT REPOSITIONED WITH PILLOWS, CALL LIGHT IN REACH,CONTINUE TO MONITOR.
--- NOTE | 2019-12-31 13:28 | NUR ---
PT RESTING IN BED, DISCUSSED HOME MEDS. PT MEDICATED PER MAR. NO SIGNS OF DISTRESS NOTED, RESP EVEN AND UNLABORED. PT VOICES NO NEEDS OR COMPLAINTS AT THIS TIME. CALL LIGHT IN REACH,CONTINUE TO MONITOR.
[2019-12-31 15:31] VITALS: BP 93/54
--- NOTE | 2019-12-31 16:20 | NUR ---
PT PENDING SWAB BUT RAPID NEG AND PT AFEBRILE, PT MOVED TO RM 271 CLOSER TO NURSES STATION. PT TOLERATED MOVE WELL, VOICES NO NEEDS OR COMPLAINTS AT THIS TIME. CALL LIGHT IN REACH,CONTINUE TO MONITOR.
[2019-12-31 19:18] VITALS: BP 96/58
--- NOTE | 2019-12-31 23:50 | NUR ---
PT IN BED WITH EYES CLOSED. NO S/S OF DISTRESS. RESPIRATIONS ARE EVEN AND NON LABORED. MEDICATIONS GIVEN AND TOLERATED WELL. ON IV ABT THERAPY WITH NO ADVERSE EFFECTS NOTED. IV SITE TO LEFT ARM WITH NO COMPLICATIONS NOTED. TOLERATING PO FLUIDS WELL. WILL CONTINUE TO OBSERVE
[2020-01-01 01:17] VITALS: BP 103/65
[2020-01-01 04:45] VITALS: BP 100/59
--- NOTE | 2020-01-01 04:48 | NUR ---
PT IN BED WITH EYES CLOASED. VITALS ARE STABLE. EASILY AROUSED AND NO RESPIRATORY DISTRESS NOTED. INCONTINENCE CARE PROVIDED TO PREVENT SKIN BREAKDOWN.
[2020-01-01 05:13] LABS: HEMATOCRIT 38.2 % (39.0-50.0); HEMOGLOBIN 12.2 g/dl (14.0-18.0); IMMATURE GRANULOCYTES 0.2 % (0.0-5.0); MEAN CELL VOLUME 94.1 fL CALC (80.0-100.0); MEAN CORPUSCULAR HGB CONC 31.9 g/dL CAL (32.0-36.0); NEUT# 2.2 thou/uL (1.82-7.42); RED BLOOD COUNT 4.06 mill/uL (4.70-6.10); RED CELL DISTRI WIDTH 14.5 % (11.5-15.5)
[2020-01-01 05:24] LABS: ALKALINE PHOSPHATASE 58 u/l (38-126); ANION GAP 7 (6-22 (CALC)); BILIRUBIN, TOTAL 1.2 mg/dL (0.0-1.4); BUN 20 mg/dL (8-23); BUN/CREATININE RATIO 16 (12-20 (CALC)); CARBON DIOXIDE 26 mmol/l (22-30); CHLORIDE 107 mmol/l (95-108); CREATININE 1.2 mg/dL (0.7-1.3); GFR 57 ML/MIN (>=60 (CALC)); GFR FOR AFR.AMER. > 60 ML/MIN (>=60 (CALC)); POTASSIUM 3.8 mmol/l (3.5-5.1); SGOT/AST 22 u/l (19-48); SODIUM 136 mmol/l (137-146); TOTAL PROTEIN 5.5 g/dL (6.3-8.2)
[2020-01-01 05:32] LABS: ALBUMIN 2.9 g/dL (3.2-5.0)
--- NOTE | 2020-01-01 07:21 | NUR ---
RECIEVD REPORT FROM BRYNN LARKNI. PT SLEEPING IN SEMI FOWLERS POSITION UPON ENTERING ROOM. RESPIRATIONS ARE EVEN AND UNLABORED WITH NO SIGNS OF DISTRESS. ALL SAFTEY PRECATIONS IN PLACE WITH CALL LIGHT IN REACH. WILL CONTIUE TO MONITOR.
--- NOTE | 2020-01-01 08:30 | NUR ---
ASSESSMENT AND VITALS COMPLETED AT THIS TIME.PT IS A/O TO PERSON ONLY AND IS INCONTINENT. BP 123/70, HR 50, O2 98% ON ROOM AIR. RESPIRATIONS ARE EVEN AND UNLABORED WITH NO SIGNS OF DISTRESS. LUNG SOUNDS ARE CLEAR, HEART RHYTHM IS NORMAL, BOWEL SOUNDS ARE HYPOACTIVE. LAST REPORTED BM 12/30/19. RADIAL AND PEDAL PULSES ARE STRONG WITH NORMAL CAPILLARY REFILL. PT PRESENTS WITH TRACE EDEMA IN LOWER EXTREMITIES. IV FLUIDS RUNNING AT 75 ML ORDERED, SITE APPEARS HEALTHY AND PATENT. MORNING MEDICATIONS ADMINISTERED WITH NO DIFFICULTY.COCCYX SLIGHTLY RED WITH NO SKIN BREAK. PT DENIES ANY PAIN OR DISCOMFORTS AT THIS TIME. ALL SAFTEY PRECAUTIONS IN PLACE WITH CALL LIGHT IN REACH. WILL CONTIUE TO MONITOR.
[2020-01-01 08:35] VITALS: BP 123/70
[2020-01-01] MEDS ORDERED: KEFLEX500 MG PO (11:34)
--- NOTE | 2020-01-01 11:35 | NUR ---
AT BEDSIDE DISCUSSING POC.
--- NOTE | 2020-01-01 12:00 | NUR ---
PT SLEEPING IN SEMI FOLWERS POSITION AT THIS TIME. RESPIRATIONS ARE EVEN AND UNLABORED WITH NO SIGNS OF DISTRESS. IV FLUIDS RUNNING AT 75 ML ORDERED, SITE APPEARS HEALTHY AND PATENT. NO SIGNS OF ANY PAIN OR DISCOMFORTS AT THIS TIME. ALL SAFTEY PRECAUTIONS IN PLACE WITH CALL LIGHT IN REACH. WILL CONTINUE TO MONITOR
--- NOTE | 2020-01-01 14:00 | NUR ---
PT RESTING IN SEMI FOWLERS POSITION IN SEMI FOWLERS POSITION. RESPIRATIONS ARE EVEN AND UNLABORED WITH NO SIGNS OF DISTRESS. PT DENIES ANY PAIN OR DISCOMFORTS. ALL SAFTEY PRECAUTIONS REMAIN IN PLACE WITH CALL LIGHT IN REACH. WILL CONTINUE TO MONITOR
[2020-01-01 15:34] VITALS: BP 108/69
[2020-01-01 19:06] VITALS: BP 88/59
--- NOTE | 2020-01-01 19:30 | NUR ---
RESTING IN BED ON ROUNDS. AWAKE, ALERT AND ORIENTED TO PERSON ONLY. RESP NON-LABORED. LUNGS CLEAR. IV IN LFA #22 WITH NS INFUSING AT 75 ML/HR. IV SITE BENIGN. PATIENT INCONTIENT OF LARGE AMOUNT OF YELLOW URINE. PARTIAL BATH AND CHUX AND BRIEF CHANGED. TURNS AND REPOSTIONS WITH MINIMAL ASSIST. COCCYX AREA REDDISH/PURPLE DISCOLORATION. EXPLAINED TO PATIENT NEED TO TURN SIDE TO SIDE AND STAY OFF BACK MUCH POSSIBLE. DENIES NEEDS AT THIS TIME. CALL RICH IN REACH.
--- NOTE | 2020-01-01 22:00 | NUR ---
RESTING QUIETLY IN BED AT THIS TIME.
--- NOTE | 2020-01-02 00:05 | NUR ---
INCONTINENT OF URINE. SKIN CARE AND BRIEF CHANGED BY FINISH ROLLS OPERATOR'S.
[2020-01-02 03:45] VITALS: BP 107/57
--- NOTE | 2020-01-02 04:12 | NUR ---
PATIENT AWAKE ON ROUNDS. IV IN LW REMOVED BY PATIENT. ATTEMPTED REINSERTION X1 UNSUCCESSFUL. PATIENT REFUSING TO HAVE IV RESTARTED AT THIS TIME. WILL ATTEMPT AGAIN LATER. INCONTINENT OF LARGE AMOUNT OF URINE. SKIN CARE GIVEN, BRIEF CHANGED.
--- NOTE | 2020-01-02 07:10 | NUR ---
RECIEVED REPORT FROM BRYNN MARRERO. PT SLEEPING IN SEMI FOLWERS POSITION WHEN ENTERING ROOM.RESPIRATIONS ARE EVEN AND UNLABORED WITH NO SIGNS OF DISTRESS. IV FLUIDS RUNNING @75 ML ORDERED, SITE APPEARS HEALTHY AND PATENT. NO SIGNS OF ANY PAIN OR DISCOMFORTS AT THIS TIME ALL SAFTEY PRECAUTIONS IN PLACE WITH CALL LIGHT IN REACH. WILL CONTINUE TO MONITOR
[2020-01-02 08:59] VITALS: BP 115/58
--- NOTE | 2020-01-02 09:20 | NUR ---
ASSESSMENT AND VITALS COMPLETED AT THIS TIME. BP 115/58, HR 54, O2 93% ON ROOM AIR. RESPIRATIONS ARE EVEN AND UNALBORED WITH NO SIGNS OF DISTRESS. LUNG SOUNDS ARE CLEAR. HEART RHYTHM IS NORMAL. BOWEL SOUNDS ARE ACTIVE IN ALL QUADRANTS. RADIAL AND PEDAL PULSES ARE STRONG WITH NORMAL CAPILLARY REFILL.INFORMED BY NBA KEENE THAT PT PULLED OUT IV CATHATER WHEN ENTERING ROOM. NO NEW IV STARTED AT THIS TIME DUE TO POSSIBLE DISCHARGE BACK TO [facility]. PT DOES PRESENT WITH RED COCCYX, REPOSITIONED PT. ANY TIME TRYING TO REPOSITION PT, HE WILL TURN BACK ONTO HIS BACK. PT IS A/O TO PERSON ONLY AND INCONINENT. BED ALARM IS ACTIVATED. PT DENIES ANY PAIN OR DISCOMFORTS AT THIS TIME. ALL SAFTEY PRECAUTIONS IN PLACE WITH CALL LIGHT IN REACH. WILL CONTINUE TO MONITOR
--- NOTE | 2020-01-02 11:56 | NUR ---
PT EDUCATED ON DISCHARGE INSTRUCTIONS AND NEW MEDICATIONS. PT VERBALIZED UNDERSTANDING AND INFORMED WRITTER THAT HE DID NOT HAVE ANY QUESTIONS. AWAITING FOR [facility] TRANSPORTATION SCHEDULED FOR 1330. PT RESTING IN SEMI FOLWERS POSITION EATING LUNCH. RESPIRATIONS ARE EVEN AND UNALBORED WITH NO SIGNS OF DISTRESS. PT DENIES ANY PAIN OR DISCOMFORTS AT THIS TIME. ALL SAFTEY PRECATUIONS IN PLACE WITH CALL LIGHT IN REACH AND BED ALARM ACTIVATED. WILL CONTINUE TO MONITOR
--- NOTE | 2020-01-02 13:51 | NUR ---
Discharge instructions given. Patient verbalizes understanding of same. Discharged in stable condition via Wheelchair to [facility] with staff. All belongings sent with pt. PT DISCHARGED FROM FLOOR IN STABLE CONDITION VIA WHEELCHAIR ACCOMPAINED BY ANANTH RUTHERFORD AND ANANTH HERNÁNDEZ.PT TO BE TRANSPORTED TO THE [place]. PT DISCHARGED WITH DISCHARGE INTRUSTIONS AND ALL BELONGINGS
== END 2020-01-02 13:51 ==
LOC: ED 16:21 → ED-I 19:30 → ED 19:41 → ED-I 19:42 → MS2 19:42
PROVIDERS: Nurse Practitioner Family; ADMIT Internal Medicine; ATTEND Internal Medicine
DX: N39.0 Urinary tract infection, site not specified (principal); G25.2 Other specified forms of tremor; I10 Essential (primary) hypertension; I48.20 Chronic atrial fibrillation, unspecified; J44.9 Chronic obstructive pulmonary disease, unspecified; F03.90 Unspecified dementia, unspecified severity, without behavioral disturbance, psychotic disturbance, mood disturbance, and anxiety; E78.5 Hyperlipidemia, unspecified; N40.0 Benign prostatic hyperplasia without lower urinary tract symptoms; B96.4 Proteus (mirabilis) (morganii) as the cause of diseases classified elsewhere; Z87.891 Personal history of nicotine dependence; Z11.59 Encounter for screening for other viral diseases
CPT/HCPCS: G0378

== ENCOUNTER 2020-01-15 06:37 | Emergency (ER) | payer MEDICARE, BC ==
[~2020-01-15] VITALS: Ht 162.6 cm; Wt 86.0 kg
[2020-01-15 07:56] LABS: HEMOGLOBIN 13.6 g/dl (14.0-18.0); IMMATURE GRANULOCYTES 0.2 % (0.0-5.0); MEAN CELL VOLUME 93.3 fL CALC (80.0-100.0); MEAN CORPUSCULAR HGB 30.2 pG CALC (26.0-32.0); MEAN CORPUSCULAR HGB CONC 32.4 g/dL CAL (32.0-36.0); NEUT# 3.58 thou/uL (1.82-7.42); RED BLOOD COUNT 4.5 mill/uL (4.70-6.10); RED CELL DISTRI WIDTH 14.5 % (11.5-15.5)
[2020-01-15 08:11] LABS: ALKALINE PHOSPHATASE 70 u/l (38-126); ANION GAP 8 (6-22 (CALC)); BILIRUBIN, TOTAL 1.6 mg/dL (0.0-1.4); BUN 19 mg/dL (8-23); BUN/CREATININE RATIO 14 (12-20 (CALC)); CARBON DIOXIDE 30 mmol/l (22-30); CHLORIDE 103 mmol/l (95-108); CREATININE 1.3 mg/dL (0.7-1.3); GFR 52 ML/MIN (>=60 (CALC)); GFR FOR AFR.AMER. > 60 ML/MIN (>=60 (CALC)); INTERNATIONAL NORMALIZED RATIO 1.1 RATIO (0.7-1.3); LIPASE 63 u/l (23-300); POTASSIUM 3.9 mmol/l (3.5-5.1); PROTHROMBIN TIME 11.6 SECONDS (9.0-12.5); SODIUM 137 mmol/l (137-146)
[2020-01-15 08:18] LABS: ALBUMIN 3.9 g/dL (3.2-5.0); SGOT/AST 41 u/l (19-48); TOTAL PROTEIN 6.7 g/dL (6.3-8.2)
[2020-01-15 08:49] VITALS: BP 103/61
== END 2020-01-15 09:10 | disposition home or self-care (01) ==
LOC: ED 06:37
PROVIDERS: Family Medicine
DX: R11.10 Vomiting, unspecified (principal); I10 Essential (primary) hypertension; G30.9 Alzheimer's disease, unspecified; F02.80 Dementia in other diseases classified elsewhere, unspecified severity, without behavioral disturbance, psychotic disturbance, mood disturbance, and anxiety; Z20.828 Contact with and (suspected) exposure to other viral communicable diseases
CPT/HCPCS: S0164

== ENCOUNTER 2020-01-28 08:25 | Emergency (ER) | payer MEDICARE, BC ==
[~2020-01-28] VITALS: Ht 162.6 cm; Wt 86.0 kg
[2020-01-28 09:36] VITALS: BP 108/72
== END 2020-01-28 09:47 | disposition home or self-care (01) ==
LOC: ED 08:25
DX: R53.1 Weakness (principal); I10 Essential (primary) hypertension; G30.9 Alzheimer's disease, unspecified; F02.80 Dementia in other diseases classified elsewhere, unspecified severity, without behavioral disturbance, psychotic disturbance, mood disturbance, and anxiety; Z11.59 Encounter for screening for other viral diseases

== ENCOUNTER 2020-04-01 06:55 | Emergency (ER) | payer MEDICARE, BC ==
[~2020-04-01] VITALS: Ht 162.6 cm; Wt 90.0 kg
[2020-04-01] MEDS ORDERED: SPIRONOLACTONE25 MG PO (07:22)
[2020-04-01] MEDS ORDERED: B121000 MCG PO (07:23)
[2020-04-01 07:41] LABS: HEMATOCRIT 40.9 % (39.0-50.0); HEMOGLOBIN 12.8 g/dl (14.0-18.0); IMMATURE GRANULOCYTES 0.3 % (0.0-5.0); MEAN CELL VOLUME 92.5 fL CALC (80.0-100.0); MEAN CORPUSCULAR HGB CONC 31.3 g/dL CAL (32.0-36.0); NEUT# 5.02 thou/uL (1.82-7.42); RED BLOOD COUNT 4.42 mill/uL (4.70-6.10); RED CELL DISTRI WIDTH 14.3 % (11.5-15.5)
[2020-04-01 07:58] LABS: ALBUMIN 3.9 g/dL (3.2-5.0); ALKALINE PHOSPHATASE 74 u/l (38-126); ANION GAP 12 (6-22 (CALC)); BILIRUBIN, TOTAL 1.9 mg/dL (0.0-1.4); BUN 19 mg/dL (8-23); BUN/CREATININE RATIO 14 (12-20 (CALC)); CARBON DIOXIDE 27 mmol/l (22-30); CHLORIDE 102 mmol/l (95-108); CREATININE 1.3 mg/dL (0.7-1.3); GFR 52 ML/MIN (>=60 (CALC)); GFR FOR AFR.AMER. > 60 ML/MIN (>=60 (CALC)); POTASSIUM 3.9 mmol/l (3.5-5.1); SGOT/AST 33 u/l (19-48); SODIUM 137 mmol/l (137-146); TOTAL PROTEIN 6.6 g/dL (6.3-8.2)
[2020-04-01 08:10] LABS: MYOGLOBIN 299 ng/mL (0 - 121)
[2020-04-01 11:12] VITALS: BP 92/48
== END 2020-04-01 11:15 ==
LOC: ED 06:55
PROVIDERS: Emergency Medicine
DX: R07.9 Chest pain, unspecified (principal); I10 Essential (primary) hypertension; G30.9 Alzheimer's disease, unspecified; F02.80 Dementia in other diseases classified elsewhere, unspecified severity, without behavioral disturbance, psychotic disturbance, mood disturbance, and anxiety; Z20.828 Contact with and (suspected) exposure to other viral communicable diseases

== ENCOUNTER 2020-05-23 06:47 | Observation (INO) | payer MEDICARE, BC ==
[~2020-05-23] VITALS: Ht 177.8 cm; Wt 80.3 kg
[~2020-05-23 06:47] MED LIST changes: +SPIRONOLACTONE25 MG PO
--- NOTE | 2020-05-23 07:06 | NUR ---
BY EMS TO ROOM
--- NOTE | 2020-05-23 07:06 | NUR ---
recieved for care,resting. v/s stable. no distress at this time.
[2020-05-23 07:24] LABS: HEMATOCRIT 44.5 % (39.0-50.0); HEMOGLOBIN 13.5 g/dl (14.0-18.0); IMMATURE GRANULOCYTES 0.2 % (0.0-5.0); MEAN CELL VOLUME 90.1 fL CALC (80.0-100.0); MEAN CORPUSCULAR HGB 27.3 pG CALC (26.0-32.0); MEAN CORPUSCULAR HGB CONC 30.3 g/dL CAL (32.0-36.0); NEUT# 3.91 thou/uL (1.82-7.42); RED BLOOD COUNT 4.94 mill/uL (4.70-6.10); RED CELL DISTRI WIDTH 14.5 % (11.5-15.5)
[2020-05-23] MEDS ORDERED: [UNRECOGNIZED DRUG - OTHER] PO (07:31)
[2020-05-23] MEDS ORDERED: ALLERGY MED25 MG PO (07:32)
[2020-05-23] MEDS ORDERED: TRIAMCINOLON0.11 EX (07:33)
[2020-05-23 07:37] LABS: ALBUMIN 3.5 g/dL (3.2-5.0); ALKALINE PHOSPHATASE 59 u/l (38-126); ANION GAP 11 (6-22 (CALC)); BILIRUBIN, TOTAL 2.3 mg/dL (0.0-1.4); BUN 18 mg/dL (8-23); BUN/CREATININE RATIO 14 (12-20 (CALC)); CARBON DIOXIDE 28 mmol/l (22-30); CHLORIDE 105 mmol/l (95-108); CREATININE 1.3 mg/dL (0.7-1.3); GFR 52 ML/MIN (>=60 (CALC)); GFR FOR AFR.AMER. > 60 ML/MIN (>=60 (CALC)); POTASSIUM 3.9 mmol/l (3.5-5.1); SGOT/AST 40 u/l (19-48); SODIUM 140 mmol/l (137-146); TOTAL PROTEIN 6.1 g/dL (6.3-8.2)
--- NOTE | 2020-05-23 08:15 | NUR ---
PATIENT SLEEPING. NO DISTRESS. NO COUGHING NOTED.
--- NOTE | 2020-05-23 08:46 | NUR ---
PATIENT PENDING DC. FOLLOWING RESULTS FROM MD.PATIENT STABLE,NO COUGH NOTED
--- NOTE | 2020-05-23 10:35 | NUR ---
RESTING QUIETLY,NO DISTRESS
--- NOTE | 2020-05-23 12:38 | NUR ---
patient eating tolerating well. Content. Aware of eait for transportaion. No distress at this time.
--- NOTE | 2020-05-23 18:15 | NUR ---
PT RESTING ON STRETCHER WITH EYES OPEN. RESP EVEN AND UNLABORED. AWAITING ADMISSION.
--- NOTE | 2020-05-23 19:00 | NUR ---
IN ROOM INTRODUCED SELF TO PT. NO C/O AT THIS TIME. V/S STABLE.
--- NOTE | 2020-05-23 20:15 | NUR ---
Admission Note Report Given to: HA SWAIN Transported by: Wheelchair X Stretcher Transported with: X Nurse Transporter X Patent IV O2 Dietetic Technician Location: X ICU [facility]
--- NOTE | 2020-05-23 20:40 | NUR ---
NO PRODUCTIVE COUGH NOTED AT THIS TIME. V/S STABLE. NO ACUTE DISTRESS NOTED. PT. IS DISORIENTED TO TIME AND PLACE, UNABLE TO REORIENT.
--- NOTE | 2020-05-23 21:45 | NUR ---
PT. TAKEN TO ICU VIA STRETCHER, NO C/O AT THIS TIME.
[2020-05-23 22:00] VITALS: BP 102/58
--- NOTE | 2020-05-23 22:10 | NUR ---
PATIENT ARRIVES VIA STRETCHER ACCOMPANIED BY ER NURSE PENNY. PATIENT IS TRANSFERRED TO BED. IS HARD OF HEARING. ALERT, ORIENTED TO NAME AND PLACE. ON RA, NO SOB NOTED. NURSE ASSESSMENT PERFORMED. R-WRIST IV INTACT, FLUSHES PROPERLY, SALINE LOCKED. DISPOSABLE PULL UP DRY AT THIS TIME. REQUESTS A MARI HUBER, PROVIDED. SWALLOWS WITHOUT DIFFICULTY. NURSE ASSESSMENT PERFORMED. DOES HAVE GREEN/THICK DRAINAGE FROM NOSE. LIPS ARE PURPLE/BLUE. O2 SATS GREATER THAN 95%. DOES FOLLOW DIRECTIONS ALTHOUGH HE NEED REPETITIVE DIRECTIONS. PULLS HIS ALLERY.FALL RISK BANDS OFF. BED ALARM ON. ELECTRIC WIRER BILATERALLY MODERATE. NO COMPLAINTS OF PAIN. CALL LIGHT WITHIN REACH.
--- NOTE | 2020-05-23 23:37 | NUR ---
PATIENT ABLE TO SWALLOW HIS MEDICATION WITH INSTRUCTIONS, NO ACUTE DISTRESS SHOWN, DOES HAVE NASAL DRAINAGE, GREEN/THIN. WAS WIPED AND CLEANED. CALL LIGHT WITHIN REACH.
--- NOTE | 2020-05-24 00:37 | NUR ---
FAX REQUEST SENT OVER TO [facility] FOR DEMOGRAPHICS INFORMATION ON PATIENT SINCE HE IS NOT ABLE TO ANSWER ADMISSION QUESTIONS DUE TO HIS HISTORY OF ALZHEIMER'S DEMENTIA ND HE IS ORIENTED TO HIS NAME AND PLACE ONLY. PLACED A PHONE CALL WELL TO [facility] TO NOTIFY OF REQUEST. THEY WILL BE SENDING NECESSARY INFORMATION VIA FAX.
[2020-05-24 02:00] VITALS: BP 100/58
--- NOTE | 2020-05-24 05:40 | NUR ---
PATIENT AWAKENS EASILY WHEN SPOKEN TO, PT WAS WASHED UP, HAD LARGE INCONTINENCE OF BM AND URINE. REPOSITIONED TO RIGHT SIDE. NO ACUTE DISTRES SHOWN.
[2020-05-24 05:59] LABS: HEMATOCRIT 49.1 % (39.0-50.0); HEMOGLOBIN 14.7 g/dl (14.0-18.0); IMMATURE GRANULOCYTES 0.2 % (0.0-5.0); MEAN CELL VOLUME 92.1 fL CALC (80.0-100.0); MEAN CORPUSCULAR HGB 27.6 pG CALC (26.0-32.0); MEAN CORPUSCULAR HGB CONC 29.9 g/dL CAL (32.0-36.0); NEUT# 3.81 thou/uL (1.82-7.42); RED BLOOD COUNT 5.33 mill/uL (4.70-6.10); RED CELL DISTRI WIDTH 14.6 % (11.5-15.5)
[2020-05-24 06:05] VITALS: BP 126/66
[2020-05-24 06:22] LABS: ALBUMIN 3.3 g/dL (3.2-5.0); ALKALINE PHOSPHATASE 66 u/l (38-126); ANION GAP 12 (6-22 (CALC)); BILIRUBIN, TOTAL 2.3 mg/dL (0.0-1.4); BUN 17 mg/dL (8-23); BUN/CREATININE RATIO 17 (12-20 (CALC)); CARBON DIOXIDE 26 mmol/l (22-30); CHLORIDE 105 mmol/l (95-108); GFR > 60 ML/MIN (>=60 (CALC)); GFR FOR AFR.AMER. > 60 ML/MIN (>=60 (CALC)); SGOT/AST 42 u/l (19-48); SODIUM 138 mmol/l (137-146)
--- NOTE | 2020-05-24 06:31 | NUR ---
PATIENT WAS SAFELY TRANSFERRED TO [address] [place] [address]. NO ACUTE DSITRESS SHOWN AND ALL BELONGINGS WITH PATIENT. REPORT WAS CALLED TO NBA HOOPER BEFORE-HAND.
--- NOTE | 2020-05-24 06:40 | NUR ---
PT ARRIVED TO [facility] VIA STRETCHER ACCOMPANIED BY HONG SWAIN. A&O TO SELF, PT HARD OF HEARING. PT UNAWARE OF WHERE HE IS AT, ORIENTED PT TO PLACE AND TIME, REINFORCEMENT NEEDED. NO COUGH NOTED AT THIS TIME. BED SET AT LOWEST POSITION FOR SAFETY. ASSESSMENT COMPLETED. DISCUSSED POC/REINFORCEMENT NEEDED. ISOLATION PRECAUTIONS IN PLACE. CALL LIGHT IN REACH. CONTINUE TO MONITOR.
[2020-05-24 08:47] VITALS: BP 117/70
--- NOTE | 2020-05-24 08:50 | NUR ---
PT RESWABBED FOR C19, PT TOLERATED WELL. CONTINUE TO MONITOR.
--- NOTE | 2020-05-24 08:51 | NUR ---
MEDICATIONS TAKEN WITH EASE WITH PUDDING. NO DIFFICULTY NOTED. CONTINUE TO MONITOR.
--- NOTE | 2020-05-24 12:10 | NUR ---
PT SLEEPING IN BED. RESP EVEN AND UNLABORED. CONTINUE TO MONITOR.
[2020-05-24 15:00] VITALS: BP 111/69
--- NOTE | 2020-05-24 17:30 | NUR ---
X2 NEGATIVE C19 SWABS. CASE MANAGEMENT NOTIFIED.
--- NOTE | 2020-05-24 17:37 | NUR ---
PT SLEEPING IN BED. NO DISTRESS NOTED. CONTINUE TO MONITOR.
--- NOTE | 2020-05-24 19:00 | NUR ---
REPORT RECEIVED FROM Max TILLEY RN, CARE OF PT ASSUMED AT THIS TIME.
[2020-05-24 19:30] VITALS: BP 112/40
--- NOTE | 2020-05-24 21:15 | NUR ---
PT LAYING IN BED, APPEARS TO BE SLEEPING COMFORTABLY, EASILY WAKES TO VERBAL STIMULI. PT IS PLEASANT, CONFUSED AND ORIENTED TO SELF ONLY. PHYSICAL ASSESMENT COMPLETE. SCHEDULED MEDICATIONS ADMINISTERED, SEE E-MAR. PT REPORTS HE IS COMFORTABLE AND DENIES NEEDS WHEN ASKED. CALL RICH WITHIN REACH, PT DEMONSTRATES HOW TO PROPERLY USE TO CALL, AGREES TO CALL PRN. BED LOCKED IN LOW POSITION WITH BEDRAILS UP X2.
--- NOTE | 2020-05-24 22:07 | NUR ---
PTS CALLS, STATES PT CALLED HER AND SAID HE "DROPPED HIS TRAY AND ALMOST FELL". ASSURED PTS PT WOULD BE CHECKED ON IMMEDIATELY. UPON ENTERING ROOM PT SITTING UP ON SIDE OF BED. PT HAS SPILLED LARGE AMOUNT OF HIS FOOD AND BEVARAGE ON THE FLOOR IN FRONT OF HIM. STATES "I COULD FALL AND SLIP ON THIS, CALL SOMEONE TO CLEAN IT". PT STATES HE IS DONE WITH HIS TRAY AND IS READY FOR IT TO BE TAKEN AWAY. TRAY REMOVED. EVS IN TO WASH FLOOR. ASKED PT TO BE MORE CAREFUL WITH FOOD AND LIQUIDS OR CALL FOR HELP NEEDED. PT REMAINS DROWSY BUT ROUSABLE.
--- NOTE | 2020-05-25 00:39 | NUR ---
INCONTINENCE CHECK BY Yusuf PACK CNA, REPORTS PT INCONTINENT IN BRIEF, ZACK-CARE AND BRIEF CHANGE PROVIDED BY Yusuf PACK CNA.
--- NOTE | 2020-05-25 05:21 | NUR ---
PT APPEARS TO BE SLEEPING COMFORTABLY, EYES CLOSED, RESPIRATIONS REGULAR AND UNLABORED. NO APPARENT DISTRESS. CALL RICH REMIANS WITHIN REACH.
[2020-05-25 05:29] VITALS: BP 105/54
[2020-05-25 07:14] VITALS: BP 102/60
--- NOTE | 2020-05-25 08:30 | NUR ---
REPORT WAS RECEIVED FROM BRYNN YA. ASSESSMENT DONE. PT IS RESTING IN BED. PT IS A&O X1 THIS TIME. PT DENIES PAIN. LUNGS SOUNDS CLEAR/DIMINISHED. RW 20 APPEARS HEALTHY AND FLUSH WELL. PO FLUIDS PROVIDED. PT DENIES ANY OTHER NEEDS AT THIS TIME. SAFETY PRECAUTIONS REINFROCED AND CALL LIGHT IN REACH.
--- NOTE | 2020-05-25 09:40 | NUR ---
CALLED PT DAUGHTER ARTHUR TO INFORM HER THAT PT IS GOING BACK TO [facility] TODAY . PER [facility] THEY WILL PICK PT IN 15 MIN. DAUGHTER VERBALIZED UNDERSTAND.
--- NOTE | 2020-05-25 11:01 | NUR ---
Discharge instructions given. Patient verbalizes understanding of same. Discharged in stable condition via Wheelchair to [facility] staff. All belongings sent with pt. CALL [facility] THAT PT IS GOING BACK AND SEND HIS DC PAPPER WORK WITH HIM.
== END 2020-05-25 11:01 ==
LOC: ED 06:47 → ED-I 17:42 → ED 18:14 → ICU 18:15 → MS2 18:15 → ICU 18:15 → MS2 21:45
PROVIDERS: Family Medicine; Nurse Practitioner Family; ADMIT Internal Medicine; ATTEND Internal Medicine
DX: R05 Cough (principal); I10 Essential (primary) hypertension; G30.9 Alzheimer's disease, unspecified; F02.80 Dementia in other diseases classified elsewhere, unspecified severity, without behavioral disturbance, psychotic disturbance, mood disturbance, and anxiety; F32.9 Major depressive disorder, single episode, unspecified; E78.5 Hyperlipidemia, unspecified; J44.9 Chronic obstructive pulmonary disease, unspecified; I48.91 Unspecified atrial fibrillation; N40.0 Benign prostatic hyperplasia without lower urinary tract symptoms; Z87.891 Personal history of nicotine dependence; Z20.828 Contact with and (suspected) exposure to other viral communicable diseases
CPT/HCPCS: G0378; J1650

== ENCOUNTER 2020-06-04 12:37 | Emergency (ER) | payer MEDICARE, BC ==
[~2020-06-04] VITALS: Ht 177.8 cm; Wt 90.0 kg
[~2020-06-04 12:37] MED LIST changes: +ALLERGY MED25 MG PO; +TRIAMCINOLON0.11 EX; +[UNRECOGNIZED DRUG - OTHER] PO
[2020-06-04 14:51] LABS: HEMATOCRIT 50.7 % (39.0-50.0); HEMOGLOBIN 15.2 g/dl (14.0-18.0); IMMATURE GRANULOCYTES 0.4 % (0.0-5.0); MEAN CELL VOLUME 91.7 fL CALC (80.0-100.0); MEAN CORPUSCULAR HGB 27.5 pG CALC (26.0-32.0); NEUT# 5.64 thou/uL (1.82-7.42); RED BLOOD COUNT 5.53 mill/uL (4.70-6.10); RED CELL DISTRI WIDTH 15.8 % (11.5-15.5)
[2020-06-04 15:50] LABS: ALBUMIN 3.6 g/dL (3.2-5.0); ALKALINE PHOSPHATASE 74 u/l (38-126); ANION GAP 11 (6-22 (CALC)); BILIRUBIN, TOTAL 2.2 mg/dL (0.0-1.4); BUN 23 mg/dL (8-23); BUN/CREATININE RATIO 19 (12-20 (CALC)); CARBON DIOXIDE 28 mmol/l (22-30); CHLORIDE 104 mmol/l (95-108); CREATININE 1.2 mg/dL (0.7-1.3); GFR 57 ML/MIN (>=60 (CALC)); GFR FOR AFR.AMER. > 60 ML/MIN (>=60 (CALC)); POTASSIUM 4.3 mmol/l (3.5-5.1); SGOT/AST 44 u/l (19-48); SODIUM 139 mmol/l (137-146); TOTAL PROTEIN 6.6 g/dL (6.3-8.2)
[2020-06-04 19:35] VITALS: BP 122/62
== END 2020-06-04 19:35 ==
LOC: ED 12:37
DX: R41.0 Disorientation, unspecified (principal); F32.9 Major depressive disorder, single episode, unspecified; I10 Essential (primary) hypertension; G30.9 Alzheimer's disease, unspecified; F02.80 Dementia in other diseases classified elsewhere, unspecified severity, without behavioral disturbance, psychotic disturbance, mood disturbance, and anxiety; E78.5 Hyperlipidemia, unspecified; I48.91 Unspecified atrial fibrillation; R22.1 Localized swelling, mass and lump, neck; Z99.3 Dependence on wheelchair; Z63.4 Disappearance and death of family member; Z20.828 Contact with and (suspected) exposure to other viral communicable diseases

== ENCOUNTER 2020-11-17 08:36 | Inpatient (IN) | payer MEDICARE, BC ==
[2020-11-17] VITALS (31 sets, daily range): BP systolic 82–113; BP diastolic 55–75
[~2020-11-17 08:36] MED LIST changes: +KEFLEX500 M1 PO
--- NOTE | 2020-11-17 08:37 | NUR ---
PATIENT RECIEVED FROM EMS, UNABLE TO OBTAIN O2 SAT, PATIENT BLUISH SKIN COLORED, LETHARGIC.
--- NOTE | 2020-11-17 08:38 | NUR ---
DR.. ARSHAD TO [facility]
--- NOTE | 2020-11-17 08:48 | NUR ---
SEPTIC PROTOCOL INITIATED.
--- NOTE | 2020-11-17 09:02 | NUR ---
CNTRAL LINE INSERTION BY DR ARSHAD TO RIGHT FEMORAL ARTERY USING STERILE TECHNIQUE. PATIENT TOLERATED WELL. ALL LABS AND BLOOD CULTURES OBTAINED.
--- NOTE | 2020-11-17 09:11 | NUR ---
VITAL INSERTION BY RP RN. PATIENT TOLERATED WELL. STERILE TECHNIQUE THROUGHOUT.
[2020-11-17 09:16] LABS: HEMATOCRIT 49.6 % (39.0-50.0); HEMOGLOBIN 14.4 g/dl (14.0-18.0); IMMATURE GRANULOCYTES 0.4 % (0.0-5.0); MEAN CORPUSCULAR HGB 22.8 pG CALC (26.0-32.0); NEUT# 11.62 thou/uL (1.82-7.42); RED BLOOD COUNT 6.32 mill/uL (4.70-6.10); RED CELL DISTRI WIDTH 23.6 % (11.5-15.5)
[2020-11-17 09:31] LABS: MEAN CELL VOLUME 78.5 fL CALC (80.0-100.0)
[2020-11-17 09:35] LABS: INTERNATIONAL NORMALIZED RATIO 1.3 RATIO (0.7-1.3); PROTHROMBIN TIME 13.1 SECONDS (9.0-12.5)
[2020-11-17 09:37] LABS: ALBUMIN 3.1 g/dL (3.2-5.0); ANION GAP 12 (6-22 (CALC)); BILIRUBIN, TOTAL 2.5 mg/dL (0.0-1.4); CARBON DIOXIDE 24 mmol/l (22-30); CHLORIDE 106 mmol/l (95-108); CREATININE 1.5 mg/dL (0.7-1.3); GFR 44 ML/MIN (>=60 (CALC)); GFR FOR AFR.AMER. 53 ML/MIN (>=60 (CALC)); LIPASE 131 u/l (23-300); MAGNESIUM 2.3 mg/dL (1.6-2.3); SGOT/AST 91 u/l (19-48); SODIUM 137 mmol/l (137-146); TOTAL PROTEIN 6.4 g/dL (6.3-8.2)
[2020-11-17 09:38] LABS: ALKALINE PHOSPHATASE 136 u/l (38-126); BUN 58 mg/dL (8-23); BUN/CREATININE RATIO 39 (12-20 (CALC))
--- NOTE | 2020-11-17 09:45 | NUR ---
BEDSIDE REPORT RECEIVED FORM BRYNN HANDY. PATIENT IS ALERT. RESPIRATIONS EVEN WITH AUDIBLE RHONCHI. VITAL CATHETER IN PLACE DRAINING YELLOW URINE. VSS AT THIS TIME. LAVTATED RINGERS AND VANCO RUNNING INTO RIGHT FEMORAL CENTRAL LINE. BED IS LOCKED AND IN LOWEST POSITION CALL RICH IN REACH. PLAN REVIEWED. DR AWARE OF PATIENT STATUS. NO NEW ORDERS.
[2020-11-17 09:54] LABS: URINE BLOOD DIPSTICK TRACE-LYSED (NEGATIVE); URINE GLUCOSE - DIPSTICK NEGATIVE (NEGATIVE); URINE KETONE NEGATIVE (NEGATIVE); URINE PH 5.5 (4.5-8.0); URINE PROTEIN - DIPSTICK 30 mg/dL (NEG-TRACE); URINE UROBILINOGEN - DIPSTICK 0.2 E.U./dL (0.2)
[2020-11-17 10:02] LABS: URINE BILIRUBIN - DIPSTICK SMALL (NEGATIVE); URINE NITRITE - DIPSTICK POSITIVE (Negative)
[2020-11-17 10:03] LABS: URINE BACTERIA MODERATE hpf; URINE COLOR DK. YELLOW; URINE EPITHELIAL CELLS MODERATE EPI/hpf (0-FEW); URINE LEUK ESTERASE MODERATE (NEGATIVE); URINE WBC 20-50 WBC/hpf (0-5)
--- NOTE | 2020-11-17 10:45 | NUR ---
PATIENT TO CT VIA STRETCHER
--- NOTE | 2020-11-17 11:17 | NUR ---
Reassessment of patient completed. No distress noted.
--- NOTE | 2020-11-17 11:49 | NUR ---
LEVOPHED STARTED TO RIGHT FEMORAL LINE PER EMAR. BP 75/55
[2020-11-17] MEDS ORDERED: ARICEPT10 MG PO (11:52)
[2020-11-17] MEDS ORDERED: MIRTAZAPINE15 MG PO (12:33)
[2020-11-17] MEDS ORDERED: MULTI VIT PO (12:34)
[2020-11-17] MEDS ORDERED: NYSTATIN SUSPENSION PO (12:39)
--- NOTE | 2020-11-17 12:46 | NUR ---
REPORT CALLED TO BRYNN PADILLA
--- NOTE | 2020-11-17 13:00 | NUR ---
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; hr irreg; strong pedal pulses; 1+ edema noted to ble; edema noted to ble; afib with freq freq pvc on monitor; abd soft with bs present; no bm noted per casualty underwriter; chin to gravity draining cloudt/sediment dark yellowish urine; cath carcamo device intact; #22 saline locked to lfa; TLC flushed and patent to right femoral; brisk blood return noted; levophed gtt at 4mcg/min; titrated at this time; wound/redness noted to mid upper back, coccyx, bilat heels and bilat great toes; see pics on chart; heel protectors intact; repositioned; bed alarm set for pt safety; will continue to monitor closely
--- NOTE | 2020-11-17 14:28 | NUR ---
resting in bed with eyes closed; no apparent distress noted; o2 per nc; chin to gravity; call light within reach; will continue to monitor
--- NOTE | 2020-11-17 15:08 | NUR ---
Dr Amezcua called per freelance writer in regards to afib rvr/ runs of vtach; bp reviewed; orders received and on chart
--- NOTE | 2020-11-17 16:10 | NUR ---
pt resting in bed with eyes closed; no apparent distress noted; iv intact and patent; levophed gtt at 8mcg/min; chin to gravity; o2 per nc; call light within reach; will continue to monitor
--- NOTE | 2020-11-17 18:00 | NUR ---
pt resting in bed with eyes closed; repositioned to right side; no apparent distress noted; iv intact and patent; levophed gtt cont at 8mcg/min; chin to gravity;
--- NOTE | 2020-11-17 19:17 | NUR ---
PATIENT RESTING IN BED WITH EYES CLOSED. ALERT TO SELF. RESP EVEN AND UNLABORED, 2L VIA NC IN PLACE. R FEM TLC INFUSING LEVOPHED AND IV FLUIDS. VITAL DRAINING CLOUDY, JULIANA COLORED URINE. SEVERAL WOUNDS NOTED. FALL AND SAFTEY PRECAUTIONS IN PLACE.
--- NOTE | 2020-11-17 20:38 | NUR ---
PATIENT MEDICATED PER MD ORDERS. NO S/S OF DISTRESS AT THIS TIME. FALL AND SAFTEY PRECAUTIONS IN PLACE.
--- NOTE | 2020-11-17 23:43 | NUR ---
MIDNIGHT ABX GIVEN PER MD ORDERS. PATIENT RESTING WITH EYES CLOSED. RESP EVEN AND UNLABORED. NO S/S OF DISTRESS NOTED. FALL AND SAFTEY PRECAUTIONS IN PLACE.
[2020-11-18] VITALS (37 sets, daily range): BP systolic 80–117; BP diastolic 56–78
--- NOTE | 2020-11-18 02:00 | NUR ---
PATIENT RESTING WITH EYES CLOSED. RESP EVEN AND UNLABORED. NO S/S OFDISTRESS NOTED. FALL AND SAFTEY PRECAUTIONS IN PLACE.
--- NOTE | 2020-11-18 04:07 | NUR ---
PATIENT RESTING WITH EYES CLOSED. RESP EVEN AND UNLABORED. NO S/S OF DISTRESS NOTED. DURING THE NIGHT PATIENT HAD MANY FEW BEAT RUNS OF V-TACH, HEART RATE STAYED IRREGULAR AND A-FIB MOST OF THE NIGHT. FALL AND SAFTEY PRECAUTIONS IN PLACE.
--- NOTE | 2020-11-18 05:26 | NUR ---
AM MEDICATIONS GIVEN PER MD ORDERS.
[2020-11-18 05:44] LABS: HEMATOCRIT 48.9 % (39.0-50.0); HEMOGLOBIN 14.2 g/dl (14.0-18.0); MEAN CORPUSCULAR HGB 22.9 pG CALC (26.0-32.0); RED BLOOD COUNT 6.19 mill/uL (4.70-6.10); RED CELL DISTRI WIDTH 23.9 % (11.5-15.5)
[2020-11-18 06:14] LABS: ALBUMIN 2.6 g/dL (3.2-5.0); ALKALINE PHOSPHATASE 113 u/l (38-126); ANION GAP 10 (6-22 (CALC)); BILIRUBIN, TOTAL 3.1 mg/dL (0.0-1.4); BUN 41 mg/dL (8-23); BUN/CREATININE RATIO 30 (12-20 (CALC)); CARBON DIOXIDE 25 mmol/l (22-30); CHLORIDE 107 mmol/l (95-108); CREATININE 1.3 mg/dL (0.7-1.3); GFR 52 ML/MIN (>=60 (CALC)); GFR FOR AFR.AMER. > 60 ML/MIN (>=60 (CALC)); POTASSIUM 3.9 mmol/l (3.5-5.1); SGOT/AST 77 u/l (19-48); SODIUM 138 mmol/l (137-146); TOTAL PROTEIN 5.6 g/dL (6.3-8.2)
--- NOTE | 2020-11-18 07:10 | NUR ---
REPORT RECEIVED FROM BRYNN MARC.
--- NOTE | 2020-11-18 07:36 | NUR ---
PT RESTING SEMI FOWLERS IN BED; BODY CONTRACTED AND SUPPORTED WITH PILLOWS. PT OPENS EYES AND LOOK UP TO VERBAL STIMULI; ALERT; ORIENTED TO NAME; WHEN ASKED HIS HE REPLYS, "I DON'T REMEMBER." SHAKES HIS HEAD NO WHEN ASKED IF HE IS HAVING PAIN. RESPIRATIONS EVEN AND UNLABORED ON ROOM AIR; SPO2 100%; LUNGS ARE CLEAR. HEART RATE IRREGULAR; CURRENTLY IN AFIB ON RECEIVER DISPATCHER HEART RATE 90-113. TRIPLE LUMEN CENTRAL CATHETER TO RIGHT FEM APPEARS HEALTHY AND DRESSING IS CDI; LEVOPHED INFUSING AT 8 MCG/MIN; BP 115/76; TITRATED DOWN TO 7 AT THIS TIME; NORMAL SALINE ALSO INFUSING AT 100 ML/HR. #22 EMS SITE TO R WRIST SALINE LOCKED. 1+ EDEMA TO RIGHT ANKLE; HEELS OFFLOADED WITH PILLOWS. SAFETY MEASURES IN PLACE; NEEDS ARE ANTICIPATED BY STAFF.
--- NOTE | 2020-11-18 08:29 | NUR ---
DR. PELAEZ AT BEDSIDE.
--- NOTE | 2020-11-18 08:39 | NUR ---
DR. PELAEZ AT BEDSIDE. LEVOPHED TITRATED DOWN TO 6 MCG/MIN AT 0814; BP CURRENTLY 94/68; HR 115.
--- NOTE | 2020-11-18 09:19 | NUR ---
REPOSITIONED WITH PILLOWS ONTO LEFT SIDE; PILLOWS AND BLANKETS SUPPORTING CONTRACTURES AND BLE OFF LOADED WITH HEEL PROTECTORS IN PLACE. LEVOPHED CONTINUES AT 6 MCG/MIN; BP 100/67; WILL CONTINUE TO MONITOR.
--- NOTE | 2020-11-18 10:34 | NUR ---
BP 105/66; LEVOPHED TITRATED DOWN TO 5 MCG/MIN.
--- NOTE | 2020-11-18 14:32 | NUR ---
COMPLETE BED BATH PROVIDED INCLUDING VITAL CARE AND LINEN CHANGE. DRESSINGS AND BANDAIDS REMOVED AND ZINC OXIDE APPLIED TO BACK, COCCYX, AND UPPER CHEST WHERE CONTRACTED NECK CAUSES CHIN TO RUB SKIN; SKIN PREP APPLIED TO BILATERAL HEELS AND GREAT TOES.
--- NOTE | 2020-11-18 14:34 | NUR ---
PT AT BEDSIDE.
--- NOTE | 2020-11-18 15:03 | NUR ---
TRANSFERRED ONTO AIRMATTRESS WITH 4 PERSON ASSIST.
--- NOTE | 2020-11-18 17:30 | NUR ---
LEVOPHED TITRATED DOWN TO 3 MCG/MIN.
--- NOTE | 2020-11-18 19:45 | NUR ---
awakens easily. oriented to name only. cardiac exercise physiologist shows a fib occas pvcs occas paced beat hr 80. rt fem tlc in place ns infusing @ 100cchr, levo infusing @ 3mcg/min. remains npo. chin cath in place. urine cloudy yellow. has multi bruises, discolored & scabbed areas. see pics. bilat heel protectors & air mattress cont. turned & repositioned. requires total care for all needs.
--- NOTE | 2020-11-18 22:00 | NUR ---
eyes closed. no distress. core cutter and reamer shows afib pvcs occas paced beats hr 134
[2020-11-19] VITALS (23 sets, daily range): BP systolic 73–116; BP diastolic 51–73
--- NOTE | 2020-11-19 00:01 | NUR ---
eyes closed. no distress. groundwater monitoring technician shows a fib pvcs hr 124.
--- NOTE | 2020-11-19 02:00 | NUR ---
resting quietly. resps even & unlabored. no apparent distress. ivf infusing well.
--- NOTE | 2020-11-19 04:00 | NUR ---
blood drawn & sent to lab.
[2020-11-19 05:36] LABS: HEMATOCRIT 46.5 % (39.0-50.0); HEMOGLOBIN 13.5 g/dl (14.0-18.0); IMMATURE GRANULOCYTES 0.9 % (0.0-5.0); MEAN CELL VOLUME 79.4 fL CALC (80.0-100.0); NEUT# 7.93 thou/uL (1.82-7.42); RED BLOOD COUNT 5.86 mill/uL (4.70-6.10)
[2020-11-19 05:58] LABS: ALBUMIN 2.4 g/dL (3.2-5.0); ALKALINE PHOSPHATASE 95 u/l (38-126); ANION GAP 10 (6-22 (CALC)); BILIRUBIN, TOTAL 2.6 mg/dL (0.0-1.4); BUN 33 mg/dL (8-23); BUN/CREATININE RATIO 27 (12-20 (CALC)); CARBON DIOXIDE 23 mmol/l (22-30); CHLORIDE 111 mmol/l (95-108); CREATININE 1.2 mg/dL (0.7-1.3); GFR 57 ML/MIN (>=60 (CALC)); GFR FOR AFR.AMER. > 60 ML/MIN (>=60 (CALC)); POTASSIUM 3.7 mmol/l (3.5-5.1); SGOT/AST 86 u/l (19-48); SODIUM 140 mmol/l (137-146); TOTAL PROTEIN 5.2 g/dL (6.3-8.2)
--- NOTE | 2020-11-19 06:00 | NUR ---
NO ACUTE CHANGE IN CONDITION THIS SHIFT.
--- NOTE | 2020-11-19 08:00 | NUR ---
PT LAYING IN BED. PLEASANTLY CONFUSED. A&O TO NAME AND PLACE. REORIENTED PT TO CURRENT TIME AND SITUATION. REINFORCEMENT NEEDED. UPON ENTRENCE PT HAD #22 FROM RW IN HAND, CATHETER INTACT. NO BLEEDING AT SITE. TRIPLE LUMEN TO RT GROING IN PLACE. NS INFUSING PER MAR ORDERDS, LEVOPHED CURRENTLY REMAINS AT 3 MCG/MIN. CLEAR/DIMINISHED BREATH SOUNDS UPON AUSCULTATION. HYPOACTIVE BOWEL SOUNDS X4 QUADS. VITAL CATHETER DRAINING VIA GRAVITY WITH JULIANA COLORED/SEDIMENT URINE. CYANOTIC NAIL BEDS/COLD EXTREMITIES. WEAK PEDAL PULSES. HEEL PROTECTORS IN PLACE. SEE CHART FOR WOUND PHOTOS. PT ABLE TO FOLLOW SIMPLE COMMANDS. CURRENTLY NPO UNTIL SPEECH EVAL. PT DENIES ANY PAIN AT THIS TIME. ASSESSMENT COMPLETED. DISCUSSED POC. REINFORCEMENT NEEDED. CALL LIGHT WITHIN REACH.
--- NOTE | 2020-11-19 08:09 | NUR ---
DR PELAEZ AT BEDSIDE DISCUSSING POC
--- NOTE | 2020-11-19 09:00 | NUR ---
SPEECH THERAPY AT BEDSIDE - FOR SWALLOW EVAL
--- NOTE | 2020-11-19 12:13 | NUR ---
PT REMAINS ON LEVO GTT AT 3 MCG/MIN. DAUGHTER UPATED ON PT. NO NEEDS AT THIS TIME. CALL LIGHT WITHIN REACH.
--- NOTE | 2020-11-19 13:25 | NUR ---
CALLED MADE TO ARTHUR-DAUGHTER TO CONFIRM DNR AND DNI STATUS - PER DR PELAEZ/PER THEIR CONVERSATION. ARTHUR AGREES TO DNR AND DNI; WITNESSED BY THIS ACID SPLICER AND Philip PATEL RN.
--- NOTE | 2020-11-19 14:00 | NUR ---
PT CURRENTLY SLEEPING IN BED. LEVOPHED GTT REMAINS AT 3MCG/MIN. NO DISRESS NOTED. CALL LIGHT WITHIN REACH.
--- NOTE | 2020-11-19 16:00 | NUR ---
PT LAYING IN BED. NO DISTRESS NOTED. LEVOPHED GTT REMAINS AT 3 MCG, BP 89/59 HR OF 110. CALL LIGHT WITHIN REACH.
--- NOTE | 2020-11-19 16:52 | NUR ---
COMPLETE BED BATH GIVEN AND LINEN CHANGED WITH THE ASSISTANCE OF A RADHA KILN CAR REPAIRER. PT TOLERATED WELL.
--- NOTE | 2020-11-19 18:01 | NUR ---
PT ATTEMPTING TO EAT DINNER WITH THE ASSISTANCE OF Godfrey PATEL CNA.
--- NOTE | 2020-11-19 20:15 | NUR ---
awake. oriented to name only. fresh work wrapper layer shows a fib pvcs. rt fem tlc in place. ns infusing @ 50cchr, levo infusing @ 3mcg/min. po fluids taken poor. chin cath in place. urine cloudy karol. see photos fot skin issues. air mattress cont. turned & repositioned. requires total care for all needs.
--- NOTE | 2020-11-19 22:00 | NUR ---
awake. remains confused. pulled pulse ox & panel monitor off-replaced.
[2020-11-20] VITALS (18 sets, daily range): BP systolic 77–108; BP diastolic 53–81
--- NOTE | 2020-11-20 00:01 | NUR ---
remains awake. no distress. pt pulled pulse ox off.
--- NOTE | 2020-11-20 02:00 | NUR ---
awake. no apparent distress. pt is fidgety. pulling @ gown, powertrain engineer & sheets.
--- NOTE | 2020-11-20 04:00 | NUR ---
help desk associate off-replaced. blood drawn & sent to lab.
[2020-11-20 05:43] LABS: HEMATOCRIT 49.4 % (39.0-50.0); HEMOGLOBIN 14.2 g/dl (14.0-18.0); IMMATURE GRANULOCYTES 1.3 % (0.0-5.0); MEAN CELL VOLUME 79.3 fL CALC (80.0-100.0); MEAN CORPUSCULAR HGB 22.8 pG CALC (26.0-32.0); MEAN CORPUSCULAR HGB CONC 28.7 g/dL CAL (32.0-36.0); NEUT# 6.96 thou/uL (1.82-7.42); RED BLOOD COUNT 6.23 mill/uL (4.70-6.10); RED CELL DISTRI WIDTH 24.4 % (11.5-15.5)
--- NOTE | 2020-11-20 06:00 | NUR ---
has been awake all shift. air sampling and monitoring shows a fib pvcs hr 106.
[2020-11-20 06:03] LABS: ANION GAP 15 (6-22 (CALC)); BUN 31 mg/dL (8-23); BUN/CREATININE RATIO 23 (12-20 (CALC)); CARBON DIOXIDE 20 mmol/l (22-30); CHLORIDE 112 mmol/l (95-108); CREATININE 1.3 mg/dL (0.7-1.3); GFR 52 ML/MIN (>=60 (CALC)); GFR FOR AFR.AMER. > 60 ML/MIN (>=60 (CALC)); POTASSIUM 3.7 mmol/l (3.5-5.1); SODIUM 143 mmol/l (137-146)
--- NOTE | 2020-11-20 07:06 | NUR ---
PT REPORT RECEIVED FROM ACETYLENE BURNER. PT RESTING QUIETLY IN BED, REMAINS PICKING ALL MONITER LEADS OFF AND WILL NOT KEEP LEADS ON, HAVE REPLACED THEM BACK ON 3 TIMES IN LAST 30 MIN. ALERT/NOT ORIENTED AT THIS TIME TO PLACE OR TIME. REMAINS ON LEVOPHED AT 3 FROM ACETYLENE BURNER.
--- NOTE | 2020-11-20 08:30 | NUR ---
HONEY THICKENED AND SPOON FED PT, SMALL AMOUNT WAS ABLE TO BE GOTTEN DOWN PT. PT ALERT/BUT NOT ORIENTED.
--- NOTE | 2020-11-20 09:34 | NUR ---
PT PULLED OFF MONITER LEADS AND PULSE OX SOON THEY WERE REPLACED, CONSTANTLY PICKING AT EVERYTHING AND WHEN STAFF WENT IN TO REPLACE MONITER LEADS PTS STARTING TRYING TO KNOCK STAFFS HANDS AWAY SAYING NO , NO DONT WANT THEM
--- NOTE | 2020-11-20 11:16 | NUR ---
PT PULLING OFF LEADS, STATING I WANT TO GO HOME NOW, VERY VOCAL AT THIS TIME. AWAITING MED ORDER FOR ZYPREXA.
--- NOTE | 2020-11-20 12:55 | NUR ---
Pt seen in semi-fowlers in bed with a chin tuck posture. Pt had reduced vocal volume/quality. He was A&O x1. Pt initally refused PO trials, however once food was placed near his mouth he had 70% acceptance rate. Pt initally had thin liquids at bedside and on lunch tray. DIRECTOR OF TESTING thickened lunch liquids to honey thick. Pt accepted multiple trials of pureed solids and honey thick liquids. D/t pt removing monitors, O2 saturation was not able to be monitored throughout the follow-up session. Pt presented with anterior loss of solids and liquids to the chin and lip with both solids and liquids. Pt had reduced oral opening upon presenation impacting adequate oral intake of solids. Pt had minimal wet vocal quality following honey thick liquids this date and he did not present with s/s of aspiration for solids. Pt should continue with aspiration precautions and have increased oral care following meals d/t reduced oral clearance and residue within the oral cavity. DIRECTOR OF TESTING recommends pureed solids and honey thick liquids.
--- NOTE | 2020-11-20 13:30 | NUR ---
PT REMAINS AWAKE AND FIDGITING WITH MONITER LEADS, PULSE OX AND COVERS. ZYPREXA HAS NOT HELPED CALM PT DOWN OF YET. VITAL SIGNS STABLE. BLOOD PRESSUREIS 83/61 WITH LEVOPHED DRIP STOPPED. IF BLOOD PRESSURE DROPS LOWER THEN WILL RESUME LEVOPHED PER DR. VERBAL ORDER
--- NOTE | 2020-11-20 15:30 | NUR ---
PT GRABBED IV LINES FROM FEMORAL LINE AND STARTED PULLING IV POLE OVER TO BED, TOOK IV LINE OUT OF PTS HANDS AND HE BEGAN PULLING OFF MONITER LEADS AGAIN AND THEN STARTED TRYING TO PULL OUT CENTRAL LINE. RAGHAVENDRA NOTIFIED THAT I NEEDED TO HAVE A SOFT WRIST RESTRAINT ORDER PLACED. INTERVENTION PLACED AND ORDER FILLED OUT.
--- NOTE | 2020-11-20 18:15 | NUR ---
PT REMAINS ON LEVOPHED AT 4, NEW BAG HUNG AT 1800, PT IS WANTING TO DRINK TEA BUT REFUSING TO EAT ANY OF THE MEAL. STILL MOVING ARMS AROUND AND TRYING TO PULL AT RESTRAINTS. HAVE TAKEN OFF RESTRAINTS TO SEE HOW HE DOES AND HE IMMEDIATELY GOES TO PULLING OFF MONITERS AND BLOOD PRESSURE CUFF. BLOOD PRESSURE IS 77/56
--- NOTE | 2020-11-20 20:22 | NUR ---
PATIENT IS AWKE, ORIENTED TO NAME ONLY, LAYS IN ALARCON'S, ASKS FOR SWEET TEA, PROVIDED, HONEY THICK, FED WITH SPOON, NO COUGH NOTED. FOLLOWS SOME DIRECTIONS, SUCH , TAKE DEEP BREATHS. NURSE ASSESSMENT PERFORMED. REPOSITONED TO R-SIDE, HEELS ELEVATED AND HEEL PROTECTORS IN PLACE, DISCOLORATION NOTED TO HANDS AND FEET, RADIAL AND BRACHIAL PULSES STRONG. R-FEM TRIPLE LUMEN INTACT, WHITE AND BROWN LUMEN RETURN BLOOD, ALL FLUSH PROPERLY. LEVOPHED DRIP INFUSING AT 4 MCG/MIN, NS INFUSING AT 50 ML/HR. VITAL CATHETER INTACT, URINE DARK JULIANA/CLEAR. BILAT WRIST RESTRAINTS INTACT, BECAME LOOSENED AND PATIENT PULLED OFF TELEMETRY AND PULSE OX OFF, READJUSTED, AIR MATRESS INTACT. AFIB ON TELEMETRY WITH HEART RATE LOW 100'S TO 150'S. PULSE 96% ON RA, NO RESPIRATORY DISTRESS NOTED, PULSE OX PLACED ON FOREHEAD. BP 70'S TO LOW 100'S SYSTOLIC. WILL CONTINUE TO MONITOR.
--- NOTE | 2020-11-20 22:35 | NUR ---
REPOSITIONED, PATIENT AWAKE, NO ACUTE DISTRESS SHOWN. NO COMPLAINTS OR NEEDS AT THIS TIME.
--- NOTE | 2020-11-20 23:31 | NUR ---
BP CUFF CHANGED TO ROBIN, TV TURNED OFF, LIGHS TURNED OFF. NO ACUTE DISTRESS SHOWN.
[2020-11-21] VITALS (17 sets, daily range): BP systolic 63–103; BP diastolic 42–77
--- NOTE | 2020-11-21 00:01 | NUR ---
PATIENT BUTTOCKS AND BACK WASHED, PATTED DRY, BUTTPASTE APPLIED ORDERED, PULLED UP, REPOSITIONED TO RIGHT SIDE. PICTURES TAKEN OF BILAT HEELS, RIGHT BIG TOE, MID BACK, BUTTOCKS. NO ACUTE DISTRESS SHOWN.
--- NOTE | 2020-11-21 02:15 | NUR ---
PILLOW TAKEN OFF OF RIGHT SIDE, LAYS IN ALARCON'S POSITION, IS AWAKE, PULLS AT BLANKETS AND TOOK HIS PULSE OX OFF, WRIST RESTRAINTS ADJUSTED. REORIENTED. NO COMPLAINTS OR NEEDS AT THIS TME. CALL LIGHT WITHIN REACH.
--- NOTE | 2020-11-21 04:05 | NUR ---
BLOOD OBTAINED FROM [facility] FOR LABS.
[2020-11-21 06:08] LABS: HEMATOCRIT 48.6 % (39.0-50.0); IMMATURE GRANULOCYTES 1.6 % (0.0-5.0); MEAN CELL VOLUME 79.5 fL CALC (80.0-100.0); MEAN CORPUSCULAR HGB 22.9 pG CALC (26.0-32.0); MEAN CORPUSCULAR HGB CONC 28.8 g/dL CAL (32.0-36.0); NEUT# 6.37 thou/uL (1.82-7.42); RED BLOOD COUNT 6.11 mill/uL (4.70-6.10); RED CELL DISTRI WIDTH 24.8 % (11.5-15.5)
[2020-11-21 06:16] LABS: CREATININE 1.5 mg/dL (0.7-1.3); POTASSIUM 3.5 mmol/l (3.5-5.1)
--- NOTE | 2020-11-21 07:43 | NUR ---
PT RESTING IN BED, REMAINS IN RESTRAINTS, REMOVED FOR TESTING AND PT IMMEDIATELY BEGAN TRYING TO PULL OFF MONITER LEADS AND PULLING ON VITAL. PT ALERT/TO SELF, LEVOPHED STILL AT 4 MCG, BLOOD PRESSURE 77/65
--- NOTE | 2020-11-21 11:45 | NUR ---
PT REMAINS RESTING IN ROOM ON BED, CONSTANTLY PICKING AT BLANKETS AND MONITER LEADS
--- NOTE | 2020-11-21 12:23 | NUR ---
LUCA THERAPIST IN WITH PT, MEAL TRAY GIVEN AT TIME AND LUCA THERAPIST WAS ABLE TO FEED PT ABOUT 6 SPOONS OF MASHED POTATOES AND HONEY THICKENED TEA
--- NOTE | 2020-11-21 13:18 | NUR ---
Patient received in a semi-beltre position. Bilateral soft wrist restraints in place. PT at bedside to assist with repositioning patient. Patient's vocal quality continues to be weak and breathy with periods of hoarseness and wet vocal quality. Patient given PO trials of pureed solids and honey thick liquids via spoon. He presented with difficulties removing pureed bolus from the spoon, prolonged oral transit time, difficulties with AP transport, suspected delayed pharyngeal swallow, decreased hyolaryngeal excursion. Pt presented with no overt s/s of penetration/aspiration. Inconsistent wet vocal quality appreciated. At this time recommend continued current diet of pureed solids and honey thick liquids via spoon only. Aspiration precautions: HOB upright for PO intake, assist at all meals, liquids BY SPOON ONlY, alternate liquids and solids, feed slowly, no ice-cream, jello, ice, or straws on meal tray. TARE MAN to follow for diet tolerance and on-going assessment of the oropharyngeal swallow.
--- NOTE | 2020-11-21 14:00 | NUR ---
PT REMAINS AWAKE, STILL TRYING TO PULL AT MONITER LEADS AND IV LINES. TRY GIVING SMALL SIPS OF FOOD AND DRINK BUT PT CONTINUES TO REFUSE. LEVOPHED AT 2 MCG AT THIS TIME WITH BLOOD PRESSURE STAYING AROUND 80/55,
--- NOTE | 2020-11-21 18:25 | NUR ---
PLACED BLANKETS AROUND PT, AND TURNED TV ON, PT GLANCING AT TV EVERY ONCE IN AWHILE, BUT CONTINUES TO FIDGET AND PULL AT RESTRAINTS. VITAL SIGNS REMAIN STABLE FOR PT. LEVOPHED CONTINUES AT 2 TO HOLD B/P IN THE 80/55 RANGE.
--- NOTE | 2020-11-21 21:12 | NUR ---
PATIENT AWAKENS WITH VERBAL STIMULI, ORIENTED TO SELF ONLY. LAYS IN ALARCON'S POSITION. AIR MATRESS INTACT. NURSE ASSESSMENT PERFORMED. EDEMA NOTED TO BILAT FEET/LEGS 2+ PITTING, DISCOLORATION NPTED TO HANDS/FEET, STRONG PEDAL PULSES. IRREGULAR HEART SOUNDS, AFIB ON TELEMETRY WITH HR RANGING FROM 90'S TO 150'S. BP 80'S SYSTOLIC, NO RESPIRATORY DISTRESS NOTED ON RA. VITAL CATHETER DARK JULIANA. WAS REPOSITIONED, AIR MATRESS INTACT, ZACK-CARE PROVIDED, BUTTOCKS CLEANED AND BED PAD CHANGED, BLEEDING NOTED TO BUTTOCKS, BUTT PASTE APPLIED TO BACK AND BUTTOCKS. MOUTH CARE PROVIDED WITH MOUTHWASH, TOOTHETTES, SUCTIONING PROVIDED DUE TO FOOD PARTICLES IN MOUTH. BILT WRIST RESTRAINTS RELEASED FOR ROM, NURSE CARE, REPOSITIONING, REPLACED. HEELS ELEVATED, HEEL PROTECTORS ON. R-FEM TRIPLE LUMEN INTACT, FLUSH PROPERLY, BROWN AND WHITE LUMEN RETURN BLLOD, LEVOPHED DRIP INFUSING AT 2 MCG/MIN AND NS AT 50 ML/HR. WAS OFFERED WATER OR SWEET TEA AT BEDSIDE, REQUESTED SWEET TEA, PROVIDED 3 SPOONFULS, NO COUGHING NOTED. WARM BLANKET PROVIDED, PATIENT STATES, "THAT FEELS GOOD." TV AND LIGHTS TURNED OFF.
[2020-11-22] VITALS (46 sets, daily range): BP systolic 71–123; BP diastolic 45–91
--- NOTE | 2020-11-22 00:34 | NUR ---
PATIENT RESTS COMFORTABLY IN BED, NO ACUTE DISTRESS SHOWN, SLEEPING. LEVOPHED DRIP WEANED TO 1 MCG/MIN, MAP GREATER THAN 65 FOR A FEW BP'S NOTED, VS Q5M.
--- NOTE | 2020-11-22 02:36 | NUR ---
PATIENT IS AWAKE, MANAGES TO PULL BLANKETS OFF OF CHEST AREA. AND PULLS OF PULSE OX, R-GHT RESTRAINT ADJSUTED. NO ACUTE DISTRESS SHOWN.
--- NOTE | 2020-11-22 04:25 | NUR ---
PATIENT IS AWAKE, BED BATHE PROVIDED, LINEN CHANGE PROVIDED. MOUTH CARE PROVIDED, HAD THREE SPOONFULS OF HONEY THICKENED SWEET TEA. NO ACUTE DISTRESS SHOWN. VIKRAM AQUACELL PAD APPLIED TO BUTTOCKS, BUTT PASTE APPLIED TO BACK AND PART OF BUTTOCKS. AIR MATRESS INTACT. VITAL IS DRAINING BLOOD TINGED URINE AND BLEEDING NOTED TO TIP OF PENIS ALONG WITH DRY BLOOD ON CATHETER TUBING. WILL CONTINUE TO MONITOR. LOTION APPLIED TO BODY. HEELS ELEVATED WITH PILLOW AND HEEL PROTECTORS IN PLACE, RESTRAINTS INTACT. WARM BLANKET PROVIDED.
--- NOTE | 2020-11-22 04:45 | NUR ---
BLOOD DRAWN FOR AM LAB WORK.
[2020-11-22 05:36] LABS: HEMATOCRIT 46.7 % (39.0-50.0); HEMOGLOBIN 13.3 g/dl (14.0-18.0); IMMATURE GRANULOCYTES 1.2 % (0.0-5.0); MEAN CELL VOLUME 80.1 fL CALC (80.0-100.0); MEAN CORPUSCULAR HGB 22.8 pG CALC (26.0-32.0); MEAN CORPUSCULAR HGB CONC 28.5 g/dL CAL (32.0-36.0); NEUT# 5.24 thou/uL (1.82-7.42); RED BLOOD COUNT 5.83 mill/uL (4.70-6.10)
--- NOTE | 2020-11-22 05:53 | NUR ---
PATIENT AWAKE, CALM. NO CUTE DISTRESS SHOWN. ANTIBIOTIC INFUSING NOW.
[2020-11-22 05:57] LABS: CREATININE 1.6 mg/dL (0.7-1.3); POTASSIUM 3.4 mmol/l (3.5-5.1)
--- NOTE | 2020-11-22 07:35 | NUR ---
pt awake in bed; no apparent distress noted; assessment completed at this time; pt alert to person only; denies pain; no n/v noted; resp even and unlabored; lungs clear/ diminished bases; resp shallow; hr irreg; wk pulses; 3+ edema noted to ble; afib on monitor; abd soft with bs present; no bm noted per remote mortgage underwriter; chin to gravity draining tea/ blood tinged urine; cath strap intact; TLC patent to right groin with ivf infusing without complication; no redness or edema noted at site; dressing intact to coccyx; redness noted to bilat great toes/ heel red; heel protectors intact; skin mottling noted to feet and hands; repositioned; plan of care/ am meds explained; call lighgt within reach; will continue to monitor
--- NOTE | 2020-11-22 08:00 | NUR ---
awake in bed; afib on monitor; no apparent distress noted; will continue to monitor
--- NOTE | 2020-11-22 08:35 | NUR ---
Dr Lyons present at bedside to assess pt and discuss plan of care
--- NOTE | 2020-11-22 10:00 | NUR ---
awake in bed; restraints released aand reapplied for repositioning and nursing care; iv intact; pt continues to pull at monitoring attachments; afib on monitor; call light within reach; will continue to monitor
--- NOTE | 2020-11-22 11:11 | NUR ---
daughter Martine called this customs entry writer; passcode verified; update provided; daughter agree to hospice consult
--- NOTE | 2020-11-22 12:00 | NUR ---
awake in bed; declined meal at this time; repositioned; afib on monitor; chin to gravity; will continue to monitor
--- NOTE | 2020-11-22 13:15 | NUR ---
Dr Lyons notified per this jingle writer in regards to low bp; levophed resumed; MD also informed of u/o of 75cc and bloody; orders received and on the chart
--- NOTE | 2020-11-22 14:05 | NUR ---
awake in bed fidgeting with monitoring lines; afib on monitor; chin to gravity; repositioned; air mattress; will continue to monitor
--- NOTE | 2020-11-22 15:01 | NUR ---
Pt received in semi-beltre position. He is in bilateral wrist restraints and continues to be confused. Vocal quality weak and hoarse with periods of breathiness. RN reports patient with limited PO intake, but tolerating diet. Patient accepted minimal PO trials of honey thick liquids and pureed solids via spoon. He presented with difficulties with labial stripping of the spoon, increased oral transit time, oral holding, suspected delayed pharyngeal swallow, and decreased hyolaryngeal excursion. No overt s/s of penetration/aspiration appreciated. PO trials of nectar thick liquids not provided 2/2 poor participation with PO trials of current diet. Per review of medical record, plan for hospice meeting. Recommend continue current diet of pureed solids and honey thick liquids by spoon. Aspiration precautions: HOB upright at 90 degrees, liquids by spoon, alternate liquids and solids, remain upright for 30 minutes after PO intake.
--- NOTE | 2020-11-22 16:00 | NUR ---
resting with eyes closed; afib on monitor; supine positioned; restraints maintained; will continue to monitor
--- NOTE | 2020-11-22 17:09 | NUR ---
resting in bed with eyes closed; easily aroused; pericare per staff; bleeding noted from meatus; catheter care; afib on monitor; repositioned to left side; pillows placed under right; will continue to monitor
--- NOTE | 2020-11-22 18:10 | NUR ---
pt bladder scanned for 183cc urine; bloody urine with clots noted; repositioned to supine; air mattress; restraints released and reapplied for nursing care; levophed gtt at 4mcg/min; afib on monitor; chin to gravity;
--- NOTE | 2020-11-22 19:30 | NUR ---
eyes closed. no acute distress. mottling cont to all exts. 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 rt fem tlc in place. ns infusing @ 75cchr, levo infusing @ 4mcg/min. chin cath in place. urine bloody. chin irrigated vigorously without diff. no clots seen. multi skin issues cont. bilat heel protects, wrist restraints, air mattress & fall precautions cont. turned & repositioned. requires total care for all needs.
--- NOTE | 2020-11-22 21:00 | NUR ---
meds taken without diff. drank 1 glass of water with honey thickening spooned into pts mouth. no choking.
[2020-11-23] VITALS (15 sets, daily range): BP systolic 78–102; BP diastolic 56–77
--- NOTE | 2020-11-23 00:01 | NUR ---
eyes closed. no distress. security monitor shows a fib pvcs hr 78.
--- NOTE | 2020-11-23 02:00 | NUR ---
resting quietly. resps even & unlabored. no apparent distress.
--- NOTE | 2020-11-23 04:40 | NUR ---
blood drawn & sent to lab.
[2020-11-23 04:55] LABS: HEMATOCRIT 45.8 % (39.0-50.0); HEMOGLOBIN 13.2 g/dl (14.0-18.0); IMMATURE GRANULOCYTES 1.7 % (0.0-5.0); MEAN CELL VOLUME 80.5 fL CALC (80.0-100.0); MEAN CORPUSCULAR HGB 23.2 pG CALC (26.0-32.0); MEAN CORPUSCULAR HGB CONC 28.8 g/dL CAL (32.0-36.0); NEUT# 6.67 thou/uL (1.82-7.42); RED BLOOD COUNT 5.69 mill/uL (4.70-6.10); RED CELL DISTRI WIDTH 25.2 % (11.5-15.5)
--- NOTE | 2020-11-23 05:10 | NUR ---
xray here. pcxr obtained.
[2020-11-23 05:23] LABS: ALBUMIN 2.5 g/dL (3.2-5.0); BILIRUBIN, TOTAL 1.7 mg/dL (0.0-1.4); CREATININE 1.7 mg/dL (0.7-1.3); POTASSIUM 3.3 mmol/l (3.5-5.1); TOTAL PROTEIN 5.2 g/dL (6.3-8.2)
--- NOTE | 2020-11-23 05:56 | NUR ---
no acute change in condition this shift. urine remains bloody but less than earlier tonight.
--- NOTE | 2020-11-23 07:35 | NUR ---
pt awake in bed; no apparent distress noted; pt offers no complaints; assessment completed at this time; pt alert to person only; calm and cooperative; denies pain; no n/v noted; resp even and unlabored; lung clear/ diminished; skin color wnl; ra; cyanosis noted to finger beds; hands/ feet purplish in color; hr irreg; strong pulses; 3+ edema noted to ble; afib on monitor; abd soft with bs present; no bm noted per automatic typewriter inspector; chin to gravity draining cloudy bloody urine; bleeding noted from urinary meatus; TLC patent o right femoral with ovf/ levophed gtt at 4mcg/min; no redness or edema noted at site; breakdown noted to coccyx; heel protectors intact with feet floated; air mattress; pt repositioned; restraints discontinued at this time; will continue to monitor
--- NOTE | 2020-11-23 08:01 | NUR ---
awake in bed; staff present at bedside to feed pt; pt tolerating very well; iv continued; afib on monitor; chin to gravity; will continue to monitor
--- NOTE | 2020-11-23 08:45 | NUR ---
Dr Lyons present at bedside to assess pt and discuss plan of care
--- NOTE | 2020-11-23 10:00 | NUR ---
resting in bed with eyes closed; no apparent distres noted; iv intact and patent; levophed gtt cont at 4 mcg/min; chin to gravity; afib on monitor; call light within reach; will continue to monitor
--- NOTE | 2020-11-23 11:35 | NUR ---
pt awakened per nursing staff for feed; will continue to monitor
--- NOTE | 2020-11-23 12:20 | NUR ---
pt resting in bed with eyes closed; declined meal; no apparent distress noted; resp even and unlabored; iv intact and patent; no redness or edema noted at site; afib on monitor; chin to gravity draining bloody urine; repositioned; air mattress; call light within reach; will continue to monitor
--- NOTE | 2020-11-23 13:00 | NUR ---
family x2 present at bedside
--- NOTE | 2020-11-23 13:07 | NUR ---
hospice [facility] present at bedside to speak with family
--- NOTE | 2020-11-23 13:35 | NUR ---
call placed to Dr Lyons; phone passed to hospice [facility]
--- NOTE | 2020-11-23 14:18 | NUR ---
awake in bed reading a magazine; offers no complaints; iv intact; afib on monitor; will continue to monitor
--- NOTE | 2020-11-23 15:00 | NUR ---
coverted to in house hospice
== END 2020-11-23 14:14 | disposition hospice, inpatient (51) | DRG 871 ==
LOC: ED 08:36 → ED-I 11:29 → ED 11:40 → ICU 11:41
PROVIDERS: Family Medicine; Internal Medicine; ADMIT Internal Medicine; ATTEND Internal Medicine
PROC: 06HY33Z Insertion of Infusion Device into Lower Vein, Percutaneous Approach (ICD-10-PCS; principal; 2020-11-17)
PROC: 0T9B70Z Drainage of Bladder with Drainage Device, Via Natural or Artificial Opening (ICD-10-PCS; 2020-11-17)
DX: A41.9 Sepsis, unspecified organism (principal); R65.21 Severe sepsis with septic shock; J69.0 Pneumonitis due to inhalation of food and vomit; N39.0 Urinary tract infection, site not specified; R64 Cachexia; Z68.1 Body mass index [BMI] 19.9 or less, adult; N17.9 Acute kidney failure, unspecified; I13.0 Hypertensive heart and chronic kidney disease with heart failure and stage 1 through stage 4 chronic kidney disease, or unspecified chronic kidney disease; F05 Delirium due to known physiological condition; I48.20 Chronic atrial fibrillation, unspecified; E86.0 Dehydration; I50.9 Heart failure, unspecified; N18.30 Chronic kidney disease, stage 3 unspecified; G30.9 Alzheimer's disease, unspecified; F02.80 Dementia in other diseases classified elsewhere, unspecified severity, without behavioral disturbance, psychotic disturbance, mood disturbance, and anxiety; F32.9 Major depressive disorder, single episode, unspecified; E78.5 Hyperlipidemia, unspecified; R91.8 Other nonspecific abnormal finding of lung field; I73.9 Peripheral vascular disease, unspecified; K76.9 Liver disease, unspecified; R62.7 Adult failure to thrive; J44.9 Chronic obstructive pulmonary disease, unspecified; N40.0 Benign prostatic hyperplasia without lower urinary tract symptoms; B96.1 Klebsiella pneumoniae [K. pneumoniae] as the cause of diseases classified elsewhere; Z66 Do not resuscitate; Z51.5 Encounter for palliative care; Z87.891 Personal history of nicotine dependence; Z20.822 Contact with and (suspected) exposure to COVID-19
CPT/HCPCS: J1650; Q9967

== ENCOUNTER 2020-11-23 14:15 | Inpatient (IN) | payer OTHER, MEDICARE, BC ==
[~2020-11-23] VITALS: Ht 177.8 cm; Wt 72.0 kg
[~2020-11-23 14:15] MED LIST changes: +ARICEPT10 MG PO; +MIRTAZAPINE15 MG PO; +MULTI VIT PO; +NYSTATIN SUSPENSION PO
[2020-11-23 15:00] VITALS: BP 98/68
--- NOTE | 2020-11-23 16:24 | NUR ---
resting in bed with eyes closed; afib on monitor; no apparent distress noted; chin to gravity; will continue to monitor
[2020-11-23 18:00] VITALS: BP 63/45
--- NOTE | 2020-11-23 18:27 | NUR ---
awake in bed; iv intact; afib on monitor; will continue to monitor
[2020-11-23 19:00] VITALS: BP 156/118
--- NOTE | 2020-11-23 21:05 | NUR ---
awake. confused. pulling @ quality assurance monitor body-removed d/t in house hospice. rt fem tlc in place & saline locked. po honey thick fluids taken well. chin cath in place. urine dark bloody. multi skin issues conts. see pics. air mattress & bilat heel protectors cont. turned & repositioned. requires total care for all needs.
--- NOTE | 2020-11-24 00:01 | NUR ---
awake. remains confused. chin cont to drain bloody urine.
--- NOTE | 2020-11-24 04:00 | NUR ---
pulls on chin @ times. no distress. turned & repositioned.
[2020-11-24 07:00] VITALS: BP 70/55
--- NOTE | 2020-11-24 07:00 | NUR ---
RECIEVED REPORT FROM NBA GIBSON.
--- NOTE | 2020-11-24 07:18 | NUR ---
PT RESTING IN LOW FOWLERS POSITION. PT IS A/O X1. ASSESSMENT AND VITALS COMPLETED. BP 70/55, HR 104, O2 94% ON ROOM AIR. RESPIRATIONS ARE EVEN AND UNLABORED.LUNG SOUNDS ARE CLEAR. HEART RHYTHM IRREGUALR. BOWEL SOUNDS ARE ACTIVE. RADIAL AND PEDAL PULSES MODERATE. RIGTH FEMORAL FLUSHED, SITE APPEARS HEALTHY AND PATENT WITH NO DISTRESS NOTED. DISCOLORATION TO BLE AND BUE NOTED.HEAL PROTECTORS IN PLACE.VITAL CATHATER IN PLACE.TUBING PATENT. BLOODY URINE NOTED. COMFORT MEASURES IN PLACE. PT DENIES OF ANY PAINS OR DISCOMFORTS AT THIS TIME. ALL SAFETY PRECAUTIONS ARE IN PLACE WITH CALL LIGHT IN REACH. WILL CONTINUE TO MONITOR.
--- NOTE | 2020-11-24 08:35 | NUR ---
DR PELAEZ AT BEDSIDE
--- NOTE | 2020-11-24 08:59 | NUR ---
[facility] CALLED TO REQUIRE IF PT WAS TO BE SEEN BY HOSPICE NURSE BEFORE GOING TO [facility] AND WHO THE PHYSICAN WOULD BE ONCE TRANSFERED.CAN STERILIZER TRANSFERED TO [facility].EmulisITTER INFORMED THAT A CALL WILL BE RETURN FROM [employer] SUPERVISOR.DR PELAEZ NOTIFIED.
--- NOTE | 2020-11-24 09:09 | NUR ---
[facility] INFORMED THAT HOSPICE NURSE WILL BE OUT AT 1100 TO ASSESS PT AND DC TO REHAB AND DR AT [facility] WOULD BE THE DR THAT IS COVERING FOR DR BE.
--- NOTE | 2020-11-24 10:20 | NUR ---
PT SLEEPING IN SEMI FOWLERS POSITION. RESPIRATIONS ARE EVEN AND UNLABORED WITH NO DISTESS NOTED. RIGHT FEMORAL TRIPLE LUMEN IN PLACE. VITAL CATHATER IN PLACE. SMALL AMOUNT OF BLOOD URINE NOTED. MD ALREADY AWARE. NO SIGNS OF ANY PAINS OR DISCOMFORTS. COMFORT MEASURES IN PLACE. WILL CONTINUE TO MONITOR
--- NOTE | 2020-11-24 11:14 | NUR ---
HOSPICE NURSE AT BEDSIDE
--- NOTE | 2020-11-24 11:15 | NUR ---
COMPLETED BED BATH PROVIDED WITH HELP FROM ANANTH FONSECA. NEW LINEN PROVIDED. SMALL BM NOTED. ZACK CARE AND CATHATER CARE PROVIDED. PT TOLERATED WELL.
--- NOTE | 2020-11-24 11:20 | NUR ---
HOSPICE NURSE AT BEDSIDE
--- NOTE | 2020-11-24 11:50 | NUR ---
WRITTER INFORMED BY HOSPCE NURSE THAT PT IS UNABLE TO BE DISCHARGED TO R TODAYBUT WILL BE WEDNESDAY. NOTIFIED.
[2020-11-24 13:00] VITALS: BP 75/52
--- NOTE | 2020-11-24 13:19 | NUR ---
DAUGHTER CONTACTED AND NOTIFIED OF PT NOT BEING ABLE TO BE D/C TO [facility] DUE PER HOSPICE NURSE.
--- NOTE | 2020-11-24 14:20 | NUR ---
PT SLEEPING IN SEMI FOWLERS POSITION. RESPIRATIONS ARE EVEN AND UNLABORED WITH NO SIGNS OF DISTRESS NOTED. VITAL CATHATER IN PLACE, TUBING PATENT. NO SIGNS OF ANY DISTRESS. WILL CONTINUE TO MONITOR
--- NOTE | 2020-11-24 15:22 | NUR ---
PT REPOSITIONED. RESPIRATIONS REMAINS EVEN AND UNLABORED. VITAL CATHATER IN PLACE. OFFERED PT SOMETHING TO DRINK. SMALL AMOUNT OF MILK ADMINISTERED. VITAL CATHATER IN PLACE. MINIMAL OUPUT. PT DENIES ANY NEEDS. WILL CONTINUE TO MONITOR
[2020-11-24 16:00] VITALS: BP 68/47
--- NOTE | 2020-11-24 16:00 | NUR ---
PT SLEEPING IN SEMI FOWLERS POSITION. REPSIRATIONS EVEN AND UNLABORED. PT AWAKES TO SPEECH. MOUTH CLEANED FROM DROWLING. PT DENIES OF ANY PAINS OR DISCOMFORTS. VITAL CATHATER IN PLACE. MINIMAL BLOOD URINE NOTED. ALL SAFETY PRECAUTIONS ARE IN PLACE. WILL CONTINUE TO MONITOR.
[2020-11-24 20:00] VITALS: BP 73/54
--- NOTE | 2020-11-24 20:00 | NUR ---
awakens easily. denies distress. po fluids taken with honey thickener. stanley well. chin cath in place. urine bloody. turned & repositioned. requires total care for all needs.
--- NOTE | 2020-11-25 00:01 | NUR ---
eyes closed. no distress. urine remain bloody.
--- NOTE | 2020-11-25 04:00 | NUR ---
eyes closed. resps even & unlabored. no apparent distress.
[2020-11-25 06:50] VITALS: BP 73/54
--- NOTE | 2020-11-25 06:50 | NUR ---
0680-Pt report handoff given my WAREHOUSE MATERIAL HANDLER Martine. Pt is alert and awake during assessment. Pt is confused. Alert to self. Denies pain, but will monitor closely for physical changes that could be r/t pain. [facility] along with hospice. He is pleasant but his appetite is poor. We jamarcus continue to keep pt comfortable, clean and safe during this shift.
--- NOTE | 2020-11-25 07:45 | NUR ---
0745-Fed pt breakfast. Liquids thickened. Pt has cognitive deficits and swallowing issues, he is unable to feed himself. Extreme care and physical placement during feedings due to past aspiration problems. After feed pt placed in high fowlers. Pt stable. Safety precautions in place.
--- NOTE | 2020-11-25 12:00 | NUR ---
1200-Hospice Admission Nurse Kelly came to unit to evaluate pt. After her assesment she will determine the plan of care along with case management and pt family.
--- NOTE | 2020-11-25 13:00 | NUR ---
1300-Sponge bath, brief change and perineal care performed. Pt did have moderate size BM. Pt is incontinent. Barrier cream applied.
--- NOTE | 2020-11-25 14:59 | NUR ---
1459-Pt discharged off unit and sent to [facility]. Pt vitals stable at time of transport. Pt only oriented to self. Pt family notified by patient case coordinator Marguerite and they approve the plan of care.
== END 2020-11-25 14:59 | disposition hospice, inpatient (51) | DRG 951 ==
LOC: ICU 14:15
PROVIDERS: ADMIT Internal Medicine; ATTEND Internal Medicine
DX: Z51.5 Encounter for palliative care (principal); A41.9 Sepsis, unspecified organism; R65.21 Severe sepsis with septic shock; J69.0 Pneumonitis due to inhalation of food and vomit; N39.0 Urinary tract infection, site not specified; R64 Cachexia; I48.20 Chronic atrial fibrillation, unspecified; N17.9 Acute kidney failure, unspecified; R62.7 Adult failure to thrive; G30.9 Alzheimer's disease, unspecified; I10 Essential (primary) hypertension; J44.9 Chronic obstructive pulmonary disease, unspecified; N40.0 Benign prostatic hyperplasia without lower urinary tract symptoms; I73.9 Peripheral vascular disease, unspecified; E86.0 Dehydration; E78.5 Hyperlipidemia, unspecified; F02.80 Dementia in other diseases classified elsewhere, unspecified severity, without behavioral disturbance, psychotic disturbance, mood disturbance, and anxiety; R91.8 Other nonspecific abnormal finding of lung field; K76.9 Liver disease, unspecified; Z66 Do not resuscitate; Z68.22 Body mass index [BMI] 22.0-22.9, adult; Z87.891 Personal history of nicotine dependence; Z20.822 Contact with and (suspected) exposure to COVID-19